=== PATIENT | female | born 1935 | race Caucasian/White ===

== ENCOUNTER 2017-11-05 18:11 | Inpatient (IN) | payer OTHER ==
--- NOTE | 2017-11-05 18:40 | PDOC ---
Rapid Medical Evaluation Time Seen by Provider: 11/05/17 18:33 Medical Evaluation: Allergies Allergy/AdvReac Type Severity Reaction Status Date / Time No Known Allergies Allergy Verified 04/13/16 12:34 11/05/17 18:34 The patient presents with a chief complaint of: Falls d/t weakness today. (+) LOC. Denies head trauma. No blood thinners. C/o R Rib pain I have performed a brief in-person evaluation of this patient; Pertinent physical exam findings: ambulatory, in no respiratory distress. HR regular in the 120's.TTP R ribs I have ordered the following: CBC, CMP, PT/INR, Trop, UA,UC, EKG, CXR The patient will proceed to the ED for further evaluation. Discharge Disposition - Referrals Referrals: Cathy Suarez MD [Primary Care Provider] - - Patient Instructions - Post Discharge Activity
[2017-11-05 19:24] LABS: BASO % 0.4 % (0-2.0); EOS % 0.5 % (0-4.5); HEMATOCRIT 44.9 % (32.4-45.2); HEMOGLOBIN 14.7 GM/dL (10.7-15.3); LYMPH % 11.5 % (8-40); MCH 30.7 pg (25.7-33.7); MCHC 32.8 g/dl (32.0-36.0); MEAN CELL VOLUME 93.6 fl (80-96); MEAN PLT VOLUME 8.1 fl (7.5-11.1); MONO % 5.9 % (3.8-10.2); NEUT % 81.7 % (42.8-82.8); PLATELET COUNT 237 K/MM3 (134-434); RDW 13.7 % (11.6-15.6); WHITE BLOOD COUNT 12.6 K/mm3 (4.0-10.0)
[2017-11-05 19:43] LABS: INR 0.99 (0.82-1.09); PROTHROMBIN TIME (PATIENT) 11.2 SEC (9.7-13.0)
[2017-11-05 19:54] LABS: ALK PHOS 106 U/L (45-117); ANION GAP 11 (8-16); BILIRUBIN,TOTAL 0.3 mg/dL (0.2-1.0); BLOOD UREA NITROGEN 29 mg/dL (7-18); CALCIUM 9.4 mg/dL (8.5-10.1); CHLORIDE 105 mmol/L (98-107); CO2 23 mmol/L (21-32); CREATININE 1.1 mg/dL (0.55-1.02); GLUCOSE,RANDOM 127 mg/dL (74-106); POTASSIUM 4.1 mmol/L (3.5-5.1); SGOT/AST 29 U/L (15-37); SGPT/ALT 34 U/L (12-78); SODIUM 139 mmol/L (136-145); TOT PROT 7.2 g/dl (6.4-8.2)
--- NOTE | 2017-11-05 20:53 | PDOC ---
Attending Attestation - HPI HPI: 11/05/17 22:40 The patient is an 82 year old female, accompanied by son, with a past medical history of dementia and HTN who presents to the emergency department today status post unwitnessed fall and loss of consciousness. The patient lives at home and has a home health aid. At 4pm the patient fell out of her chair onto a carpeted floor and loss consciousness. The home health aid was able to help the patient regain consciousness but the patient was subsequently unable to get up due to weakness. GENERAL/CONSTITUTIONAL: (+) Weakness. No fever or chills. HEAD, EYES, EARS, NOSE AND THROAT: No change in vision. No ear pain or discharge. No sore throat. GASTROINTESTINAL: No nausea, vomiting, diarrhea or constipation. GENITOURINARY: No dysuria, frequency, or change in urination. CARDIOVASCULAR: No chest pain or shortness of breath. RESPIRATORY: No cough, wheezing, or hemoptysis. MUSCULOSKELETAL: No joint or muscle swelling or pain. No neck or back pain. SKIN: No rash NEUROLOGIC: (+) Loss of consciousness No headache, vertigo, or change in strength/sensation. ENDOCRINE: No increased thirst. No abnormal weight change. HEMATOLOGIC/LYMPHATIC: No anemia, easy bleeding, or history of blood clots. ALLERGIC/IMMUNOLOGIC: No hives or skin allergy. - Physicial Exam PE: 11/05/17 22:59 GENERAL: Awake, alert HEAD: No signs of trauma EYES: PERRLA, EOMI, sclera anicteric, conjunctiva clear ENT: Auricles normal inspection, hearing grossly normal, nares patent, oropharynx clear without exudates. Moist mucosa NECK: Normal ROM, supple, no lymphadenopathy, JVD, or masses LUNGS: Breath sounds equal, clear to auscultation bilaterally. No wheezes, and no crackles HEART: Regular rate and rhythm, normal S1 and S2, no murmurs, rubs or gallops ABDOMEN: Soft, nontender, normoactive bowel sounds. No guarding, no rebound. No masses EXTREMITIES: Normal range of motion, no edema. No clubbing or cyanosis. No cords, erythema, or tenderness NEUROLOGICAL: Cranial nerves II through XII grossly intact. Normal speech, no focal neuro deficits SKIN: Warm, Dry, normal turgor, no rashes or lesions noted. - Medical Decision Making 11/05/17 22:40 Documentation prepared by Howard Coyne, acting as medical record transcriber for Ne Christy DO. <Howard Coyne - Last Filed: 11/05/17 22:59> - Resident Resident Name: PacoNiko crandall - ED Attending Attestation I have performed the following: I have examined & evaluated the patient, The case was reviewed & discussed with the resident, I agree w/resident's findings & plan, Exceptions are as noted - Medical Decision Making 11/05/17 20:53 I, Dr. Ne Christy, DO, attest that this document has been prepared under my direction and personally reviewed by me in its entirety. I further attest, that it accurately reflects all work, treatment, procedures and medical decision -making performed by me. 11/05/17 22:29 a/p: 82yo female found on the [place] today with LOC -concern for poss hip fracture from fall, will obtain xrays -r rib pain earlier - will eval for rib fx -concern for syncope - labs, trop -head injury - will obtain ct head -will monitor for syncope 11/05/17 22:33 pt with a syncopal episode pt iwth a uti - will place in obs overnight abx ordered 11/05/17 22:[address] alexandre who accepts pt to service 11/06/17 00:12 pt agreeable to stay for futher eval <Ne Christy - Last Filed: 11/06/17 00:12>
[2017-11-05 21:19] LABS: URINE APPEARANCE SLCLOUDY; URINE BILIRUBIN NEGATIVE (<2.0 mg/dL); URINE COLOR YELLOW; URINE GLUCOSE (UA) NEGATIVE (NEGATIVE); URINE KETONE NEGATIVE (NEGATIVE); URINE LEUK ESTERASE 2+ (NEGATIVE); URINE NITRITE POSITIVE (NEGATIVE); URINE PROTEIN NEGATIVE (NEGATIVE); URINE UROBILINOGEN NEGATIVE mg/dL (0.2-1.0)
--- NOTE | 2017-11-05 21:21 | PDOC ---
History of Present Illness - General Chief Complaint: Injury Stated Complaint: FALL Time Seen by Provider: 11/05/17 18:33 History Source: Patient, Family Exam Limitations: Dementia - History of Present Illness Initial Comments: 11/05/17 21:11 Patient is an 82F with history of dementia and HTN here today complaining of a fall. Fall was unwitnessed, and patient does not know what happened. Patient was found a few feet from her bed. Patient is now complaining of pain to her right flank and left hip. Currently denies chest pain, shortness of breath, vertigo. Denies fevers, chills, urinary incontinence, dysuria, constipation. Patient takes aspirin, no other blood thinners. Per family is at baseline mental status. Past History - Past Medical History Allergies/Adverse Reactions: Allergies Allergy/AdvReac Type Severity Reaction Status Date / Time No Known Allergies Allergy Verified 11/05/17 18:35 Home Medications: Ambulatory Orders Bupropion HCl [Bupropion HCl Sr] 150 mg PO DAILY 04/13/16 Dicyclomine HCl 10 mg PO BID 04/13/16 Donepezil HCl 5 mg PO DAILY 04/13/16 Lipase/Protease/Amylase [Sun Almazan 36,000 Units Capsule] 1 each PO TID 04/13/16 Lubiprostone [Amitiza] 24 mcg PO BID 04/13/16 Omeprazole 40 mg PO DAILY 04/13/16 Polyethylene Glycol 3350 [Miralax (For Daily Use) -] 17 gm PO BID 04/13/16 levoFLOXacin [Levaquin -] 500 mg PO DAILY #7 tablet 04/15/16 metroNIDAZOLE [Flagyl -] 500 mg PO Q8H #12 tablet 04/15/16 Anemia: No Asthma: No Cancer: No Cardiac Disorders: No CVA: No (PT. "FAINTED IN OCTOBER- ALL WORKUP NEGATIVE") COPD: No CHF: No Dementia: No Diabetes: No GI Disorders: Yes (DIVERTICULITIS, NAUSEA, CHRONIC CONSTIPATION) Disorders: No HTN: No Hypercholesterolemia: No Liver Disease: No Seizures: No Thyroid Disease: No - Surgical History Abdominal Surgery: No Appendectomy: No Cardiac Surgery: No Cholecystectomy: No Lung Surgery: No Neurologic Surgery: No Orthopedic Surgery: Yes - Immunization History Immunization Up to Date: Yes - Suicide/Smoking/Psychosocial Hx Smoking Status: No Smoking History: Never smoked Have you smoked in the past 12 months: No Number of Cigarettes Smoked Daily: 0 Information on smoking cessation initiated: No Hx Alcohol Use: No Drug/Substance Use Hx: No Substance Use Type: None Hx Substance Use Treatment: No Review of Systems - Review of Systems Able to Perform ROS?: Yes Comments:: 11/05/17 21:21 GENERAL/CONSTITUTIONAL: No fever or chills. No weakness. HEAD, EYES, EARS, NOSE AND THROAT: No change in vision. No sore throat. CARDIOVASCULAR: No chest pain or shortness of breath RESPIRATORY: No cough, wheezing, or hemoptysis. GASTROINTESTINAL: No nausea, vomiting, diarrhea or constipation. GENITOURINARY: No dysuria, frequency, or change in urination. MUSCULOSKELETAL: Positive for right rib pain and left hip pain. SKIN: No rash NEUROLOGIC: No headache, vertigo, loss of consciousness, or change in strength/ sensation. ENDOCRINE: No increased thirst. No abnormal weight change HEMATOLOGIC/LYMPHATIC: No anemia, easy bleeding, or history of blood clots. ALLERGIC/IMMUNOLOGIC: No hives or skin allergy. *Physical Exam - Vital Signs Last Vital Signs Temp Pulse Resp BP Pulse Ox 97.5 F L 67 14 144/52 96 11/05/17 18:35 11/05/17 18:35 11/05/17 18:35 11/05/17 18:35 11/05/17 18:35 - Physical Exam Comments: 11/05/17 21:24 GENERAL: Awake, alert, oriented to self/place, not time, in no acute distress HEAD: No signs of trauma, normocephalic, atraumatic EYES: PERRLA, EOMI, sclera anicteric, conjunctiva clear ENT: Auricles normal inspection, hearing grossly normal, nares patent, oropharynx clear without exudates. Moist mucosa NECK: Normal ROM, supple, no lymphadenopathy, JVD, or masses. No midline tenderness LUNGS: No distress, speaks full sentences, clear to auscultation bilaterally HEART: Regular rate and rhythm, normal S1 and S2, no murmurs, rubs or gallops, peripheral pulses normal and equal bilaterally. ABDOMEN: Soft, nontender, normoactive bowel sounds. No guarding, no rebound. No masses EXTREMITIES: No signs of trauma, tender along left hip. NEUROLOGICAL: Cranial nerves II through XII grossly intact. Normal speech, no focal sensorimotor deficits, but left hip movement limited by pain SKIN: Warm, Dry, normal turgor, no rashes or lesions noted. ED Treatment Course - LABORATORY CBC & Chemistry Diagram: 11/05/17 19:15 11/05/17 19:15 - ADDITIONAL ORDERS Additional order review: Laboratory Results 11/05/17 11/05/17 11/05/17 19:15 19:15 19:15 PT with INR 11.20 INR 0.99 Sodium 139 Potassium 4.1 Chloride 105 Carbon Dioxide 23 Anion Gap 11 BUN 29 H Creatinine 1.1 H Creat Clearance w eGFR 47.55 Random Glucose 127 H Calcium 9.4 Total Bilirubin 0.3 D AST 29 ALT 34 Alkaline Phosphatase 106 Creatine Kinase 51 Troponin I < 0.02 Total Protein 7.2 Albumin 4.0 11/05/17 19:15 RBC 4.80 MCV 93.6 MCHC 32.8 RDW 13.7 MPV 8.1 Neutrophils % 81.7 D Lymphocytes % 11.5 D Monocytes % 5.9 Eosinophils % 0.5 Basophils % 0.4 - RADIOLOGY Radiology Studies Ordered: Category Date Time Status CERVICAL SPINE CT W/O CONTR [CT] Stat CT Scan 11/05/17 20:54 Ordered HIP & PELVIS-LEFT [RAD] Stat Radiology 11/05/17 20:22 Ordered RIBS RIGHT SIDE [RAD] Stat Radiology 11/05/17 20:22 Ordered Medical Decision Making - Medical Decision Making 11/05/17 21:25 Patient is 82F with history of dementia and HTN here today after a fall. Will do head/neck ct due to aspirin use and dementia. Will do cxr, right ribs xray, and left hip x-ray to evaluate for further trauma. Nontender chest, nontender abdomen. Will evaluate further with cbc, cmp, trop, ekg, pt/inr, ua, uc. 11/05/17 21:52 Laboratory Tests 11/05/17 11/05/17 11/05/17 19:15 19:15 19:15 WBC 12.6 H D Hgb 14.7 D Plt Count 237 D BUN 29 H Creatinine 1.1 H Troponin I < 0.02 Urine Nitrite Ur Leukocyte Esterase Urine WBC (Auto) Urine Bacteria 11/05/17 21:00 WBC Hgb Plt Count BUN Creatinine Troponin I Urine Nitrite Positive Ur Leukocyte Esterase 2+ H Urine WBC (Auto) 8 Urine Bacteria Few UA positive. CBC shows leukocytosis. Troponin undetectable. CMP reassuring. Will 1g ceftriaxone. 11/05/17 22:11 CT neck/head negative. 11/05/17 23:41 Admitted to obs for further observation. *DC/Admit/Observation/Transfer Diagnosis at time of Disposition: Syncope and collapse, UTI (urinary tract infection) - Discharge Dispostion Condition at time of disposition: Stable Decision to Admit order: Yes - Referrals - Patient Instructions - Post Discharge Activity
[2017-11-05 21:25] LABS: URINE BACTERIA FEW /hpf (NONE SEEN); URINE MUCUS RARE
[2017-11-05] MEDS ORDERED: CEFTRIAXONE 1 GM in DEXTROSE 5%-WATER - 100 ML IVPB ONE (22:57)
--- NOTE | 2017-11-05 23:32 | HP ---
CHIEF COMPLAINT: syncopal episode PCP: Cathy Shane HISTORY OF PRESENT ILLNESS: 82 year old female with a past medical history of hypertension and dementia presented to the hospital s/p fall and loss of consciousness. She states that she does not remember what happened before or after the fall, but only that afterwards she was found several feet from her bed. She denies associated chest pain, shortness of breath, nausea, vomiting, diarrhea, fevers, chills, dysuria or polyuria. She has had syncopal episodes in the past for which she was worked up at [facility] in 2016 (Previous echo, (66% EF, elevated RVSP 30-40, aortic sclerosis)). She denies any current pain associated from the fall, but she does state she has a mild suprapubic dyscomfort. She reports normal bowel movements. 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 She denies smoking or alcohol use. ER course was notable for: (1) UA + for nitrite and leuk esterase (2) WBC 12.6 (3) Cre 1.1 Recent Travel: PAST MEDICAL HISTORY: as listed above PAST SURGICAL HISTORY: minor procedures but no major surgeries according to patient Social History: Smoking: never Alcohol: never Drugs: never Allergies No Known Allergies Allergy (Verified 11/05/17 18:35) HOME MEDICATIONS: Home Medications Medication Instructions Recorded Bupropion HCl [Bupropion HCl Sr] 150 mg PO DAILY 04/13/16 Dicyclomine HCl 10 mg PO BID 04/13/16 Donepezil HCl 5 mg PO DAILY 04/13/16 Lipase/Protease/Amylase [Creon Dr 1 each PO TID 04/13/16 36,000 Units Capsule] Lubiprostone [Amitiza] 24 mcg PO BID 04/13/16 Omeprazole 40 mg PO DAILY 04/13/16 Polyethylene Glycol 3350 [Miralax 17 gm PO BID 04/13/16 (For Daily Use) -] levoFLOXacin [Levaquin -] 500 mg PO DAILY #7 tablet 04/15/16 metroNIDAZOLE [Flagyl -] 500 mg PO Q8H #12 tablet 04/15/16 REVIEW OF SYSTEMS CONSTITUTIONAL: Absent: fever, chills, diaphoresis, generalized weakness, malaise, loss of appetite, weight change HEENT: Absent: rhinorrhea, nasal congestion, throat pain, throat swelling, difficulty swallowing, mouth swelling, ear pain, eye pain, visual changes CARDIOVASCULAR: Absent: chest pain, syncope, palpitations, irregular heart rate, lightheadedness , peripheral edema RESPIRATORY: Absent: cough, shortness of breath, dyspnea with exertion, orthopnea, wheezing, stridor, hemoptysis GASTROINTESTINAL: mild abdominal pain, Absent:abdominal distension, nausea, vomiting, diarrhea, constipation, melena, hematochezia GENITOURINARY: Absent: dysuria, frequency, urgency, hesitancy, hematuria, flank pain, genital pain MUSCULOSKELETAL: Absent: myalgia, arthralgia, joint swelling, back pain, neck pain SKIN: Absent: rash, itching, pallor HEMATOLOGIC/IMMUNOLOGIC: Absent: easy bleeding, easy bruising, lymphadenopathy, frequent infections ENDOCRINE: Absent: unexplained weight gain, unexplained weight loss, heat intolerance, cold intolerance NEUROLOGIC: Absent: headache, focal weakness or paresthesias, dizziness, unsteady gait, seizure, mental status changes, bladder or bowel incontinence PSYCHIATRIC: Absent: anxiety, depression, suicidal or homicidal ideation, hallucinations. PHYSICAL EXAMINATION Vital Signs - 24 hr 11/05/17 18:35 Temperature 97.5 F L Pulse Rate 67 Respiratory 14 Rate Blood Pressure 144/52 O2 Sat by Pulse 96 Oximetry (%) GENERAL: A&Ox3, no acute distress EYES: PERRLA, EOMI ENT: Moist mucus membranes NECK: No JVD LUNGS: CTA, no wheezes HEART: RRR, no murmurs ABDOMEN: Soft, nontender, BS present MUSCULOSKELETAL: No CVA Tenderness EXTREMITIES: 2+ pulses, no edema. NEUROLOGICAL: Cranial nerves II-XII intact. Laboratory Results - last 24 hr 11/05/17 11/05/17 11/05/17 19:15 19:15 19:15 WBC 12.6 H D RBC 4.80 Hgb 14.7 D Hct 44.9 D MCV 93.6 MCH 30.7 MCHC 32.8 RDW 13.7 Plt Count 237 D MPV 8.1 Neutrophils % 81.7 D Lymphocytes % 11.5 D Monocytes % 5.9 Eosinophils % 0.5 Basophils % 0.4 PT with INR 11.20 INR 0.99 Sodium 139 Potassium 4.1 Chloride 105 Carbon Dioxide 23 Anion Gap 11 BUN 29 H Creatinine 1.1 H Creat Clearance w eGFR 47.55 Random Glucose 127 H Calcium 9.4 Total Bilirubin 0.3 D AST 29 ALT 34 Alkaline Phosphatase 106 Creatine Kinase Troponin I Total Protein 7.2 Albumin 4.0 Urine Color Urine Appearance Urine pH Ur Specific [place] Urine Protein Urine Glucose (UA) Urine Ketones Urine Blood Urine Nitrite Urine Bilirubin Urine Urobilinogen Ur Leukocyte Esterase Urine WBC (Auto) Urine RBC (Auto) Urine Bacteria Urine Mucus 11/05/17 11/05/17 19:15 21:00 WBC RBC Hgb Hct MCV MCH MCHC RDW Plt Count MPV Neutrophils % Lymphocytes % Monocytes % Eosinophils % Basophils % PT with INR INR Sodium Potassium Chloride Carbon Dioxide Anion Gap BUN Creatinine Creat Clearance w eGFR Random Glucose Calcium Total Bilirubin AST ALT Alkaline Phosphatase Creatine Kinase 51 Troponin I < 0.02 Total Protein Albumin Urine Color Yellow Urine Appearance Slcloudy Urine pH 5.0 D Ur Specific [place] 1.026 Urine Protein Negative Urine Glucose (UA) Negative Urine Ketones Negative Urine Blood 1+ H Urine Nitrite Positive Urine Bilirubin Negative Urine Urobilinogen Negative Ur Leukocyte Esterase 2+ H Urine WBC (Auto) 8 Urine RBC (Auto) 5 Urine Bacteria Few Urine Mucus Rare ASSESSMENT/PLAN: 82 year old female with a past medical history of hypertension and dementia presented to the hospital s/p and is admitted for observation to evaluate syncopal episode #Syncopal Episode: patient is currently asymptomatic -EKG sinus sita at 58bpm, LAD - repeat EKG -orthostatic vitals -prior echo was in 2016 and showed 66% EF, elevated RVSP 30-40, aortic sclerosis -repeat echo -trops negative x2 -cardiac monitoring #Asymptomatic Bacteruria: patient was given 1gm ceftriaxone in ED -continuing abx not clinically indicated #Hypertension: patient's blood pressure is currently stable -not on any antihypertensives at home #Dementia -continue donezepil #FEN -no standing fluids -electrolytes within normal limits, repeat BMP in AM -low-sodium diet in AM due to hx of htn #Prophylaxis -heparin #Disposition -admit tele obs Visit type - Emergency Visit Emergency Visit: Yes ED Registration Date: 11/05/17 Care time: The patient presented to the Emergency Department on the above date and was hospitalized for further evaluation of their emergent condition. - New Patient This patient is new to me today: Yes Date on this admission: 11/06/17 - Critical Care Critical Care patient: No Hospitalist Screening - Colonoscopy Questionnaire Colonoscopy Questionnaire: Colonoscopy Questionnaire - Patient: 50 - 75 years old and never had a screening colonoscopy: Unknown History of colon or rectal polyps, or CA: Unknown History of IBD, Crohn's disease or UC: Unknown History of abdominal radiation therapy as a child: Unknown - Relative: 1 with colon or rectal CA, or polyps at age 60 or younger: Unknown Colon or rectal CA diagnosed at age 45 or younger: Unknown Multiple relatives with colon or rectal CA: Unknown - Outcome: Screening Result: Negative Screen
[2017-11-06] MEDS ORDERED: cefTRIAXone SODIUM 1 GM VIAL ONE ×2 (00:52→09:46)
--- NOTE | 2017-11-06 02:53 | PN ---
Teaching Attending Note Name of Resident: Andrade Payne ATTENDING PHYSICIAN STATEMENT I saw and evaluated the patient. Chart, data, imaging reviewed I reviewed the resident's note and discussed the case with the resident. I agree with the resident's findings and plan as documented. SUBJECTIVE: 82 year old woman with a PMHx of htn, dementia, presented to hospital s/p fall at her house and questionable LOC. She was found to be lying next to her bed at home. Pt cannot recall exactly what had happened. No signs of trauma. C/o some abdominal discomfort. Denied any chest pain, or shortness of breath. OBJECTIVE: Last Vital Signs Temp Pulse Resp BP Pulse Ox 97.5 F L 57 L 20 147/80 98 11/05/17 18:35 11/06/17 01:01 11/06/17 01:01 11/06/17 01:01 11/06/17 01:01 general- nad, nontoxic appearing heent-atraumatic, normocephalic neck -no jvd or neck mases cv-s1+s2+ rrr, no murmurs appreciated chest- cta b/l abdomen -soft, nt, BS+ ext- no pedal edema appreciated Abnormal Lab Results 11/05/17 11/05/17 11/05/17 19:15 19:15 21:00 WBC 12.6 H D BUN 29 H Creatinine 1.1 H Random Glucose 127 H Urine Blood 1+ H Ur Leukocyte Esterase 2+ H Imaging reviewed- head neg for acute intracranial pathology, spine ct neg for fractures, cxr no rib fractures seen, pending official read ekg -reviewed, mild sinus bradycardia -hr was 58 bpm ASSESSMENT AND PLAN: #82yo demented woman with mechanical fall vs syncope. No overt signs of trauma on exam. -tele-observation -trend troponin -repeat ekg -transthoracic echo to check for aortic stenosis -check orthostatics -fall precautions -avoid diuretics -PT gait evaluation -continue home medications #DVT ppx - heparin sc
[2017-11-06 03:59] VITALS: BMI 22.9
[2017-11-06 06:35] LABS: HEMATOCRIT 39.6 % (32.4-45.2); HEMOGLOBIN 13.8 GM/dL (10.7-15.3); MCH 32.3 pg (25.7-33.7); MCHC 34.8 g/dl (32.0-36.0); MEAN CELL VOLUME 92.8 fl (80-96); MEAN PLT VOLUME 8.6 fl (7.5-11.1); PLATELET COUNT 173 K/MM3 (134-434); RBC 4.26 M/mm3 (3.60-5.2); RDW 13.6 % (11.6-15.6); WHITE BLOOD COUNT 7.6 K/mm3 (4.0-10.0)
[2017-11-06 07:13] LABS: ANION GAP 7 (8-16); BLOOD UREA NITROGEN 22 mg/dL (7-18); CHLORIDE 107 mmol/L (98-107); CO2 25 mmol/L (21-32); GLUCOSE,RANDOM 85 mg/dL (74-106); MAGNESIUM 2.2 mg/dL (1.8-2.4); POTASSIUM 3.6 mmol/L (3.5-5.1); SODIUM 139 mmol/L (136-145)
[2017-11-06 07:14] LABS: CALCIUM 8.9 mg/dL (8.5-10.1); PHOSPHOROUS 3.6 mg/dL (2.5-4.9)
[2017-11-06] MEDS ORDERED: PT OWN MED DRAWER 7, Y5N ONE (09:46)
[2017-11-06] MEDS ORDERED: DEXTROSE 5%-WATER - 50 ML IVPB ONE (09:46)
[2017-11-06] MEDS ORDERED: DICYCLOMINE HCL 10 MG CAPSULE PO SCH (10:00)
[2017-11-06] MEDS ORDERED: PATIENT'S OWN MEDICATION (NON-FORMULARY) (Lubiprostone [Amitiza] 24 MCG) PO SCH ×2 (10:00)
[2017-11-06] MEDS: CEFTRIAXONE 1 GM in DEXTROSE 5%-WATER - 50 ML IVPB SCH (10:02)
[2017-11-06] MEDS: PANTOPRAZOLE 40 MG TABLET (FP) PO SCH (10:02)
--- NOTE | 2017-11-06 10:32 | EKG ---
Test Reason : Blood Pressure : / mmHG Vent. Rate : 056 BPM Atrial Rate : 056 BPM P-R Int : 198 ms QRS Dur : 090 ms QT Int : 428 ms P-R-T Axes : 053 -35 051 degrees QTc Int : 413 ms SINUS BRADYCARDIA LEFT AXIS DEVIATION ABNORMAL ECG WHEN COMPARED WITH ECG OF 06-NOV-2017 02:59, VENT. RATE HAS DECREASED BY 55 BPM Confirmed by HILDA SIMMONS MD ([id number]) on 11/06/2017 10:32:16 AM Referred By: Confirmed By:HILDA SIMMONS MD
--- NOTE | 2017-11-06 10:33 | EKG ---
Test Reason : Blood Pressure : / mmHG Vent. Rate : 111 BPM Atrial Rate : 111 BPM P-R Int : 000 ms QRS Dur : 090 ms QT Int : 364 ms P-R-T Axes : 000 -32 071 degrees QTc Int : 495 ms POOR DATA QUALITY, INTERPRETATION MAY BE ADVERSELY AFFECTED SINUS TACHYCARDIA NONSPECIFIC T WAVE ABNORMALITY LEFT AXIS DEVIATION ABNORMAL ECG WHEN COMPARED WITH ECG OF 05-NOV-2017 22:40, VENT. RATE HAS INCREASED BY 53 BPM Confirmed by HILDA SIMMONS MD ([id number]) on 11/06/2017 10:32:43 AM Referred By: Confirmed By:HILDA SIMMONS MD
--- NOTE | 2017-11-06 11:07 | EKG ---
Test Reason : Blood Pressure : / mmHG Vent. Rate : 058 BPM Atrial Rate : 058 BPM P-R Int : 186 ms QRS Dur : 088 ms QT Int : 444 ms P-R-T Axes : 046 -32 057 degrees QTc Int : 435 ms SINUS BRADYCARDIA LEFT AXIS DEVIATION NONSPECIFIC T WAVE ABNORMALITY ABNORMAL ECG WHEN COMPARED WITH ECG OF 14-APR-2016 02:49, NO SIGNIFICANT CHANGE WAS FOUND Confirmed by HILDA SIMMONS MD ([id number]) on 11/06/2017 11:07:07 AM Referred By: Confirmed By:HILDA SIMMONS MD
[2017-11-06] MEDS ORDERED: SODIUM CHLORIDE 1,000 ML IV SCH (11:45)
--- NOTE | 2017-11-06 15:33 | PN ---
Physical Exam: SUBJECTIVE: Patient seen and examined at bedside. This morning, pt unable to further explain how she fell. Stated that she lives at home with her and family, and woke up to find herself "on the floor." States that she may have slipped off a chair. +LOC, without head trauma. Denies CUI, fever, chills, SOB, chest pain or pressure, or changes in urinary or bowel function. OBJECTIVE: Vital Signs Period Temp Pulse Resp BP Sys/Miller Pulse Ox Last 24 Hr 97.5 F-98.3 F 57-67 14-20 138-148/52-97 96-98 GENERAL: The patient is pleasant, with dementia. awake, alert, and fully oriented, in no acute distress. HEAD: Normal with no signs of trauma. EYES: PERRL, extraocular movements intact, sclera anicteric, conjunctiva clear. No ptosis. ENT: Ears normal, nares patent, oropharynx clear without exudates, dry mucous membranes NECK: Trachea midline, full range of motion, supple. LUNGS: Breath sounds equal, clear to auscultation bilaterally, no wheezes, no crackles, no accessory muscle use. HEART: Regular rate and rhythm, S1, S2 without murmur, rub or gallop. ABDOMEN: Soft, TTP in suprapubic area, nondistended, normoactive bowel sounds, no guarding, no rebound EXTREMITIES: 2+ dp pulses, warm, well-perfused, no edema. NEUROLOGICAL: Cranial nerves II through XII grossly intact. Normal speech. AAO x2 (self, place) PSYCH: Normal mood, normal affect. SKIN: Warm, dry Laboratory Results - last 24 hr 11/05/17 11/05/17 11/05/17 19:15 19:15 19:15 WBC 12.6 H D RBC 4.80 Hgb 14.7 D Hct 44.9 D MCV 93.6 MCH 30.7 MCHC 32.8 RDW 13.7 Plt Count 237 D MPV 8.1 Neutrophils % 81.7 D Lymphocytes % 11.5 D Monocytes % 5.9 Eosinophils % 0.5 Basophils % 0.4 PT with INR 11.20 INR 0.99 Sodium 139 Potassium 4.1 Chloride 105 Carbon Dioxide 23 Anion Gap 11 BUN 29 H Creatinine 1.1 H Creat Clearance w eGFR 47.55 Random Glucose 127 H Calcium 9.4 Phosphorus Magnesium Total Bilirubin 0.3 D AST 29 ALT 34 Alkaline Phosphatase 106 Creatine Kinase Troponin I Total Protein 7.2 Albumin 4.0 Urine Color 11/05/17 11/05/17 11/06/17 19:15 21:00 00:40 Hgb Alkaline Phosphatase Creatine Kinase 51 54 Troponin I < 0.02 < 0.02 Total Protein Albumin Urine Color Yellow Urine Appearance Slcloudy Urine pH 5.0 D Ur Specific Irving 1.026 Urine Protein Negative Urine Glucose (UA) Negative Urine Ketones Negative Urine Blood 1+ H Urine Nitrite Positive Urine Bilirubin Negative Urine Urobilinogen Negative Ur Leukocyte Esterase 2+ H Urine WBC (Auto) 8 Urine RBC (Auto) 5 Urine Bacteria Few Urine Mucus Rare Active Medications Generic Name Dose Route Start Last Admin Trade Name Freq PRN Reason Stop Dose Admin Bupropion HCl 150 mg 11/06/17 10:00 11/06/17 10:02 Wellbutrin Xl - PO 150 mg DAILY DARLIN Administration Donepezil HCl 5 mg 11/06/17 22:00 Aricept - PO HS DARLIN Ceftriaxone Sodium 1 gm/ 50 mls @ 100 mls/hr 11/06/17 10:00 11/06/17 10:02 Dextrose IVPB 100 mls/hr DAILY DARLIN Administration Protocol Sodium Chloride 1,000 mls @ 75 mls/hr 11/06/17 11:45 11/06/17 11:57 Normal Saline - IV 11/07/17 01:04 75 mls/hr ASDIR DARLIN Administration Metoprolol Succinate 25 mg 11/07/17 10:00 Toprol Xl - PO DAILY DARLIN Pantoprazole Sodium 40 mg 11/06/17 10:00 11/06/17 10:02 Protonix - PO 40 mg DAILY DARLIN Administration IMAGING 11/05/17: CXR: no acute disease, no infiltrates, calcified thoracic aorta 11/05/17: Head CT: no acute hemorrhage, acute chronic sinusitis 11/05/17: Hip/pelvis XR: osteopenia, no dislocation, or fx 11/05/17 Ribs XR: no rib fx 11/05/17: Cervical spine CT: degenerative arthritis, no fx 11/06/17: Carotid doppler study: intimal thickening and minimal plaque buildup at the common carotid bifurcation and bulb, bilaterally withut evidence of hemodynamically significant stenosis, bilaterally. 11/06/17: ECHO: EF 59.4, mild MR, TR, moderate aortic sclerosis, trivial pericardial effusion not hemodynamically significant EKG: NSR, sinus bradycardia, HR 50's > repeat, sinus tach 110's. without st-t wave changes ASSESSMENT/PLAN: 82 y/o F with PMH HTN, dementia, who presented s/p fall with LOC. #s/p fall likely 2/2 UTI -less likely cardiac; pt without gross abnormality on EKG or arrythmia, trops - x2 -ECHO EF 59.4 however without significant valvular abnormality - with moderate aortic sclerosis however -Carotid study- without hemodynamically significant stenosis -with suprapubic tenderness, UA +nitrites, leuk esterase, 8WBC. in elderly with dementia, can cause gait abnormality -continue on rocephin 1g IVPB qd - Today is Day2 -F/u urine cx -IVF as pt clinically dry -Ballard (Day 1)- pt with urinary retention ~700ccs. Will try and wean tomorrow -orthostatics (+) -monitoring on tele -PT evaluation -f/u ECHO as outpatient to check on small pericardial effusion status #HTN- uncontrolled likely 2/2 discomfort -medications have been reconciled with pharmacy -started on home med metoprolol succinate 25mg PO qd #Dementia -Continue aricept 5mg PO qd #F/E/N IV NS 75 cc/hr -1 bag. Avoid overhydration as pt with small pericardial effusion monitor lytes sodium controlled diet #PPX DVT: Hep 5000 SQ TID #Dispo -continued tele monitoring Visit type - Emergency Visit Emergency Visit: No - New Patient This patient is new to me today: Yes Date on this admission: 11/06/17 - Critical Care Critical Care patient: No
--- NOTE | 2017-11-06 15:59 | PN ---
Teaching Attending Note Name of Resident: Dunia Tapia ATTENDING PHYSICIAN STATEMENT I saw and evaluated the patient. I reviewed the resident's note and discussed the case with the resident. I agree with the resident's findings and plan as documented. SUBJECTIVE: No pain, no SOB. poor historian. OBJECTIVE: NAD , dry MM , no JVD Cv: RRR Lungs: CTAB Ext: no edema Abd: soft, TTP in suprapubic area, ND , NL BS . ASSESSMENT AND PLAN: 82 y/o lady with h/o HTN and dementia who presented after an unwitnessed fall. she was found to have UTI. 1- Unwitnessed fall: Most likely mechanical but can't r/o syncope. UTI might be causing gait abnormalities . PT eval tele with episodes of sinus tachycardia EKG with no acute ischemic changes , LAD. trop NL x 2. echo with LVH , no significant valvular pathology. minimal pericardial effusion - treat UTI -check orthostatic VS - give gentle hydration 2- UTI: with urinary retention yesterday, and tenderness in suprapubic area. - ocnt ceftriaxone and follow urine cx 3- start heparin sq for DVT prophylaxis
[2017-11-06] MEDS: DONEPEZIL HCL 5 MG TABLET (FP) PO SCH (21:08)
[2017-11-06] MEDS: HEPARIN NA (PORCINE) 5,000 UNITS/ML 1ML VIAL SQ SCH (21:08)
[2017-11-07] MEDS: HEPARIN NA (PORCINE) 5,000 UNITS/ML 1ML VIAL SQ SCH ×3 (05:04→22:33)
[2017-11-07 07:42] LABS: BASO % 0.5 % (0-2.0); EOS % 2.3 % (0-4.5); HEMATOCRIT 40.1 % (32.4-45.2); HEMOGLOBIN 14.1 GM/dL (10.7-15.3); LYMPH % 26.7 % (8-40); MCH 32.7 pg (25.7-33.7); MCHC 35.1 g/dl (32.0-36.0); MEAN CELL VOLUME 93.3 fl (80-96); MEAN PLT VOLUME 8.7 fl (7.5-11.1); MONO % 9.2 % (3.8-10.2); NEUT % 61.3 % (42.8-82.8); PLATELET COUNT 153 K/MM3 (134-434); RDW 13.1 % (11.6-15.6); WHITE BLOOD COUNT 5.2 K/mm3 (4.0-10.0)
[2017-11-07 08:20] LABS: ANION GAP 8 (8-16); BLOOD UREA NITROGEN 16 mg/dL (7-18); CALCIUM 8.3 mg/dL (8.5-10.1); CHLORIDE 111 mmol/L (98-107); CO2 23 mmol/L (21-32); GLUCOSE,RANDOM 90 mg/dL (74-106); POTASSIUM 3.8 mmol/L (3.5-5.1); SODIUM 142 mmol/L (136-145)
[2017-11-07 08:21] LABS: CREATININE 0.9 mg/dL (0.55-1.02)
[2017-11-07] MEDS ORDERED: PT OWN MED DRAWER 7, Y5N ONE (09:22)
[2017-11-07] MEDS ORDERED: DEXTROSE 5%-WATER - 50 ML IVPB ONE (09:22)
[2017-11-07] MEDS ORDERED: cefTRIAXone SODIUM 1 GM VIAL ONE (09:22)
[2017-11-07] MEDS: CEFTRIAXONE 1 GM in DEXTROSE 5%-WATER - 50 ML IVPB SCH (09:26)
[2017-11-07] MEDS: metoPROLOL SUCCINATE 25 MG TAB.SR.24H (FP) PO SCH (09:27)
[2017-11-07] MEDS: PANTOPRAZOLE 40 MG TABLET (FP) PO SCH (09:27)
--- NOTE | 2017-11-07 10:05 | PN ---
Physical Exam: SUBJECTIVE: Patient seen and examined at bedside. Overnight, as per nursing, pt with non-sustained episodic tachycardia. On monitor, with missed beats and HR into 120-140's. However, asymptomatic. Still with ballard. States that she "feels well," denies CUI, fever, chills, SOB, chest pain or pressure, or changes in urinary or bowel function. OBJECTIVE: Vital Signs Period Temp Pulse Resp BP Sys/Miller Pulse Ox Last 24 Hr 97.5 F-98.1 F 83-166 18-20 107-153/61-95 96-98 GENERAL: The patient is lying down comfortably. +mild dementia. AAOx2 (self, place), in no acute distress. HEAD: Normal with no signs of trauma. EYES: PERRL, extraocular movements intact, sclera anicteric, conjunctiva clear. ENT: Ears normal, nares patent, oropharynx clear without exudates, moist mucous membranes. NECK: Trachea midline, supple. LUNGS: Breath sounds equal, clear to auscultation bilaterally, no wheezes, no crackles, no accessory muscle use. HEART: Regular rate and rhythm, S1, S2 without murmur, rub or gallop. ABDOMEN: Soft, nontender, nondistended, normoactive bowel sounds, no guarding, no rebound, without suprapubic tenderness today. GENITOURINARY: +Ballard draining dark yellow urine EXTREMITIES: 2+ dp pulses, warm, well-perfused, no edema. NEUROLOGICAL: Cranial nerves II through XII grossly intact. Normal speech. Motor strength 4/5 in upper and lower extremities, sensation intact. PSYCH: Normal mood, normal affect. SKIN: Warm, dry, normal turgor Laboratory Results - last 24 hr 11/07/17 11/07/17 06:00 06:00 WBC 5.2 D RBC 4.30 Hgb 14.1 Hct 40.1 MCV 93.3 MCH 32.7 MCHC 35.1 RDW 13.1 Plt Count 153 MPV 8.7 Neutrophils % 61.3 D Lymphocytes % 26.7 D Monocytes % 9.2 Eosinophils % 2.3 D Basophils % 0.5 Sodium 142 Potassium 3.8 Chloride 111 H Carbon Dioxide 23 Anion Gap 8 BUN 16 Creatinine 0.9 Random Glucose 90 Calcium 8.3 L Active Medications Generic Name Dose Route Start Last Admin Trade Name Freq PRN Reason Stop Dose Admin Bupropion HCl 150 mg 11/06/17 10:00 11/07/17 09:27 Wellbutrin Xl - PO 150 mg DAILY DARLIN Administration Donepezil HCl 5 mg 11/06/17 22:00 11/06/17 21:08 Aricept - PO 5 mg HS DARLIN Administration Heparin Sodium (Porcine) 5,000 unit 11/06/17 22:00 11/07/17 05:04 Heparin - SQ 5,000 unit TID DARLIN Administration Ceftriaxone Sodium 1 gm/ 50 mls @ 100 mls/hr 11/06/17 10:00 11/07/17 09:26 Dextrose IVPB 100 mls/hr DAILY DARLIN Administration Protocol Metoprolol Succinate 25 mg 11/07/17 10:00 11/07/17 09:27 Toprol Xl - PO 25 mg DAILY DARLIN Administration Pantoprazole Sodium 40 mg 11/06/17 10:00 11/07/17 09:27 Protonix - PO 40 mg DAILY DARLIN Administration IMAGING 11/05/17: CXR: no acute disease, no infiltrates, calcified thoracic aorta 11/05/17: Head CT: no acute hemorrhage, acute chronic sinusitis 11/05/17: Hip/pelvis XR: osteopenia, no dislocation, or fx 11/05/17 Ribs XR: no rib fx 11/05/17: Cervical spine CT: degenerative arthritis, no fx 11/06/17: Carotid doppler study: intimal thickening and minimal plaque buildup at the common carotid bifurcation and bulb, bilaterally withut evidence of hemodynamically significant stenosis, bilaterally. 11/06/17: ECHO: EF 59.4, mild MR, TR, moderate aortic sclerosis, trivial pericardial effusion not hemodynamically significant EKG: NSR, sinus bradycardia, HR 50's > repeat, sinus tach 110's. without st-t wave changes ASSESSMENT/PLAN: 82 y/o F with PMH HTN, dementia, who presented s/p fall with LOC. #s/p fall likely 2/2 UTI -today without suprapubic tenderness, afebrile, without white count -continue on rocephin 1g IVPB qd - Today is Day 2 -Urine cx: lactose ferm gram - bacilli, >100,000 colonies -IVF as pt clinically dry for 24 hrs -Ballard (Day 2)- will do voiding trial tomorrow -orthostatics (+). repeat again today- still +, on IVF -d/w son and sister, pt has had vasovagal syncope for many years. also noticed to have shuffling gait. will likely need neuro f/u as outpt, may have caused mechanical fall -monitoring on tele -PT evaluation -f/u ECHO as outpatient to check on small pericardial effusion status #Episodes of tachycardia -EKG checks as occur -see if improve while on IVF -on rate control - BB, metoprolol succinate 25mg PO qd #HTN- uncontrolled likely 2/2 discomfort -medications have been reconciled with pharmacy -started on home med metoprolol succinate 25mg PO qd #Dementia -Continue aricept 5mg PO qd #F/E/N IV NS 75 cc/hr -1 bag. Avoid overhydration as pt with small pericardial effusion monitor lytes- especially Mg, phosph sodium controlled diet #PPX DVT: Hep 5000 SQ TID #Dispo -continued tele monitoring Visit type - Emergency Visit Emergency Visit: No - New Patient This patient is new to me today: No - Critical Care Critical Care patient: No
[2017-11-07] MEDS ORDERED: SODIUM CHLORIDE 1,000 ML IV ONE (10:44)
--- NOTE | 2017-11-07 11:43 | PN ---
Teaching Attending Note Name of Resident: Dunia Tapia ATTENDING PHYSICIAN STATEMENT I saw and evaluated the patient. I reviewed the resident's note and discussed the case with the resident. I agree with the resident's findings and plan as documented. SUBJECTIVE: no pain, fever , chills, SOB , or weakness. No events over night OBJECTIVE: NAD, MMM. No JVD Cv: RRR Lungs: CTAB Ext: no edema Abd: soft, NT, ND , NL BS . ASSESSMENT AND PLAN: 82 y/o lady with h/o HTN and dementia who presented after an unwitnessed fall. she was found to have UTI. 1- Unwitnessed fall: Most likely mechanical but can't r/o syncope. orthostatic hypotension was found and could definitely be the cause PT eval tele with episodes of narrow complex tachycardia EKG obtained , with what looks like junctional tachycardia. - treat UTI - repeat orthostatic VS on hydration . - cont BB and follow frequency of those tachycardic episodes 2- UTI with urinary retention - cont ceftriaxone day 2 . follow urine cx - cont taylor. will do voiding trial tomorrow 3- DVT prophylaxis : SQ heparin
[2017-11-07] MEDS: DONEPEZIL HCL 5 MG TABLET (FP) PO SCH (22:33)
[2017-11-08] MEDS: HEPARIN NA (PORCINE) 5,000 UNITS/ML 1ML VIAL SQ SCH ×3 (06:13→21:35)
[2017-11-08 07:29] LABS: BASO % 0.8 % (0-2.0); EOS % 2.7 % (0-4.5); HEMATOCRIT 39.3 % (32.4-45.2); HEMOGLOBIN 13.5 GM/dL (10.7-15.3); LYMPH % 32.2 % (8-40); MCH 32.1 pg (25.7-33.7); MCHC 34.4 g/dl (32.0-36.0); MEAN CELL VOLUME 93.4 fl (80-96); MONO % 11.5 % (3.8-10.2); NEUT % 52.8 % (42.8-82.8); PLATELET COUNT 168 K/MM3 (134-434); RDW 13.3 % (11.6-15.6); WHITE BLOOD COUNT 5.9 K/mm3 (4.0-10.0)
[2017-11-08 07:52] LABS: CHLORIDE 113 mmol/L (98-107); POTASSIUM 3.8 mmol/L (3.5-5.1); SODIUM 143 mmol/L (136-145)
[2017-11-08 07:57] LABS: ANION GAP 7 (8-16); BLOOD UREA NITROGEN 16 mg/dL (7-18); CALCIUM 8.4 mg/dL (8.5-10.1); CO2 23 mmol/L (21-32); CREATININE 0.9 mg/dL (0.55-1.02); GLUCOSE,RANDOM 88 mg/dL (74-106); MAGNESIUM 2.2 mg/dL (1.8-2.4); PHOSPHOROUS 3.6 mg/dL (2.5-4.9)
[2017-11-08] MEDS ORDERED: DEXTROSE 5%-WATER - 50 ML IVPB ONE (09:58)
[2017-11-08] MEDS ORDERED: cefTRIAXone SODIUM 1 GM VIAL ONE (09:58)
[2017-11-08] MEDS: PANTOPRAZOLE 40 MG TABLET (FP) PO SCH (10:00)
[2017-11-08] MEDS: metoPROLOL SUCCINATE 25 MG TAB.SR.24H (FP) PO SCH (10:01)
[2017-11-08] MEDS: CEFTRIAXONE 1 GM in DEXTROSE 5%-WATER - 50 ML IVPB SCH (10:01)
--- NOTE | 2017-11-08 15:01 | PN ---
Progress Note (short form) - Note Progress Note: Subjective: no pain , no light headedness. no abd pain . Objective: Vital Signs: Last Vital Signs Temp Pulse Resp BP Pulse Ox 97 F L 92 H 20 157/113 96 11/08/17 10:00 11/08/17 10:00 11/08/17 10:00 11/08/17 10:00 11/08/17 09:00 Laboratory Results - last 24 hr 11/08/17 11/08/17 06:00 06:00 WBC 5.9 RBC 4.20 Hgb 13.5 Hct 39.3 MCV 93.4 MCH 32.1 MCHC 34.4 RDW 13.3 Plt Count 168 MPV 9.0 Neutrophils % 52.8 Lymphocytes % 32.2 D Monocytes % 11.5 H Eosinophils % 2.7 Basophils % 0.8 Sodium 143 Potassium 3.8 Chloride 113 H Carbon Dioxide 23 Anion Gap 7 L BUN 16 Creatinine 0.9 Random Glucose 88 Calcium 8.4 L Phosphorus 3.6 Magnesium 2.2 Physical Exam: NAD, MMM. No JVD Cv: RRR Lungs: CTAB Ext: no edema Abd: soft, NT, ND , NL BS . ASSESSMENT AND PLAN: 82 y/o lady with h/o HTN and dementia who presented after an unwitnessed fall. she was found to have UTI. 1- Unwitnessed fall: Most likely mechanical but can't r/o syncope. orthostatic hypotension was found and could definitely be the cause PT eval i still pending tele with episodes of narrow complex tachycardia ( looks sinus ) - repeat orthostatic VS 2- UTI with urinary retention . Urine cx noted. - cont ceftriaxone day 3. - Dc taylor for voiding trial 3- DVT prophylaxis : SQ heparin dispo : dc pending PT eval and resolution of orthostatic hypotension Visit type - Emergency Visit Emergency Visit: Yes ED Registration Date: 11/07/17 Care time: The patient presented to the Emergency Department on the above date and was hospitalized for further evaluation of their emergent condition. - New Patient This patient is new to me today: No - Critical Care Critical Care patient: No
[2017-11-08] MEDS ORDERED: SODIUM CHLORIDE 1,000 ML IV SCH (16:00)
[2017-11-08] MEDS: DONEPEZIL HCL 5 MG TABLET (FP) PO SCH (21:35)
[2017-11-09] MEDS: HEPARIN NA (PORCINE) 5,000 UNITS/ML 1ML VIAL SQ SCH ×2 (05:55→14:19)
[2017-11-09] MEDS ORDERED: metoPROLOL SUCCINATE 25 MG TAB.SR.24H (FP) PO SCH (09:00)
[2017-11-09] MEDS ORDERED: cefTRIAXone SODIUM 1 GM VIAL ONE (10:00)
[2017-11-09] MEDS ORDERED: DEXTROSE 5%-WATER - 50 ML IVPB ONE (10:00)
[2017-11-09] MEDS: PANTOPRAZOLE 40 MG TABLET (FP) PO SCH (10:06)
[2017-11-09] MEDS: CEFTRIAXONE 1 GM in DEXTROSE 5%-WATER - 50 ML IVPB SCH (10:06)
[2017-11-09 10:11] VITALS: BP 136/86; PULSE 116; TEMP 97.5
--- NOTE | 2017-11-09 13:12 | PN ---
Teaching Attending Note Name of Resident: Dunia Tapia ATTENDING PHYSICIAN STATEMENT I saw and evaluated the patient. I reviewed the resident's note and discussed the case with the resident. I agree with the resident's findings and plan as documented. SUBJECTIVE: no fever or chills. no CP or SOB. OBJECTIVE: NAD, MMM. No JVD Cv: RRR Lungs: CTAB Ext: no edema Abd: soft, NT, ND , NL BS . ASSESSMENT AND PLAN: 82 y/o lady with h/o HTN and dementia who presented after an unwitnessed fall. she was found to have UTI. 1- Unwitnessed fall: Most likely mechanical but can't r/o syncope. orthostatic hypotension was found and could definitely be the cause PT eval reviewed. tele with improved episodes of tachycardia . - repeat orthostatic VS with improved BP, only some drop in diastolic pressure now 2- UTI with urinary retention . taylor out. no retention - ceftriaxone day 4. cont vantin for total of 7 DC today
--- NOTE | 2017-11-09 16:35 | DS ---
Physical Exam: SUBJECTIVE: Patient seen and examined at bedside. Ballard removed yesterday, and pt voiding freely. No acute events overnight; pt no longer with tachycardic episodes seen on monitor. Today, pt in good spirits with aid and daughter at bedside. Denies CUI, fever, chills, SOB, chest pain, or changes in urinary or bowel function. OBJECTIVE: Vital Signs Period Temp Pulse Resp BP Sys/Miller Pulse Ox Last 24 Hr 97.3 F-99 F 63-130 16-20 126-165/71-96 96-96 PHYSICAL EXAM GENERAL: The patient is pleasantly confused. AAOx2, in no acute distress. HEAD: Normal with no signs of trauma. EYES: PERRL, extraocular movements intact, sclera anicteric, conjunctiva clear. ENT: Ears normal, nares patent, oropharynx clear without exudates, moist mucous membranes. NECK: Trachea midline, supple. LUNGS: Breath sounds equal, clear to auscultation bilaterally, no wheezes, no crackles, no accessory muscle use. HEART: Regular rate and rhythm, S1, S2 without murmur, rub or gallop. ABDOMEN: Soft, nontender, nondistended, normoactive bowel sounds, no guarding EXTREMITIES: 2+ posterior tibial pulses, warm, well-perfused, no edema. NEUROLOGICAL: Cranial nerves II through XII grossly intact. Normal speech PSYCH: Normal mood, normal affect. SKIN: Warm, dry, normal turgor LABS Urinalysis 11/05/17 21:00 Urine Protein Negative Urine Glucose (UA) Negative Urine Ketones Negative Urine Blood 1+ H Urine Bilirubin Negative Urine Urobilinogen Negative Ur Leukocyte Esterase 2+ H Urine WBC (Auto) 8 Additional testing 11/05/17 11/05/17 11/06/17 19:15 19:15 05:52 WBC 12.6 H D 7.6 D BUN 29 H Creatinine 1.1 H 11/06/17 11/07/17 11/07/17 05:52 06:00 06:00 WBC 5.2 D BUN 22 H 16 Creatinine 1.0 0.9 11/08/17 11/08/17 06:00 06:00 WBC 5.9 Hgb 13.5 Hct 39.3 Plt Count 168 BUN 16 Creatinine 0.9 IMAGING 11/05/17: CXR: no acute disease, no infiltrates, calcified thoracic aorta 11/05/17: Head CT: no acute hemorrhage, acute chronic sinusitis 11/05/17: Hip/pelvis XR: osteopenia, no dislocation, or fx 11/05/17 Ribs XR: no rib fx 11/05/17: Cervical spine CT: degenerative arthritis, no fx 11/06/17: Carotid doppler study: intimal thickening and minimal plaque buildup at the common carotid bifurcation and bulb, bilaterally withut evidence of hemodynamically significant stenosis, bilaterally. 11/06/17: ECHO: EF 59.4, mild MR, TR, moderate aortic sclerosis, trivial pericardial effusion not hemodynamically significant EKG: NSR, sinus bradycardia, HR 50's > repeat, sinus tach 110's. without st-t wave changes HOSPITAL COURSE: Date of Admission:11/07/17 Date of Discharge: 11/09/17 Admit diagnosis: s/p fall, UTI with urinary retention 82 y/o F with PMH HTN and dementia, who presented to the hospital s/p fall and LOC. On admission, pt did not remember what happened before or after the fall, but only recalls falling several feet from her bed. She denied associated chest pain, shortness of breath, nausea, vomiting, diarrhea, fevers, chills, dysuria or polyuria. She has had syncopal episodes in the past for which she was worked up at [facility] in 2016 (Previous echo, (66% EF, elevated RVSP 30-40, aortic sclerosis)). Pt admitted s/p fall as well as UTI with urinary retention. While patient was maintained on the floor, her UA was (+) for E.coli UTI and she was treated with rocephin 1g IVPB qd for a four day course. She is being sent home on cefpodoxime 200mg PO BID for seven additional days. While pt was in the hospital, she also underwent imaging after fall, which was negative for acute fx or dislocation. As her orthostatic vitals were also positive, she was gently hydrated. Upon discharge, pt recommended home physical therapy, discussed with social services aide and aid, family at bedside upon dc. Additionally, while pt was on floor, she was noted to have episodes of sinus tach or possible junctional rhythm on telemetry monitoring. Pt was continued on metoprolol succinate for rate control, however her dose was halved to 12.5mg PO qd. She is being sent home on this dose, however will need to follow with her primary care doctor in a week to discuss this dosage change. Pt will also need f/u with an ECHO as outpatient to check on small pericardial effusion that was noted while here. Minutes to complete discharge: 40 Discharge Summary Reason For Visit: SYNCOPE AND COLLAPSE Condition: Improved - Instructions Diet, Activity, Other Instructions: You were in the hospital because you fell at home. It is possible that you passed out or tripped and fell. While you were here, you were hydrated with fluids and given antibiotics. You were found to have a urinary tract infection. We recommend you complete home physical therapy, this will be set up through visiting nurse services. We are sending you home on the following antibiotic for your urinary tract infection: vantin 200mg (capsule) twice a day, for the next seven days. We have changed your metoprolol dose to 12.5 mg daily. We are also giving you a prescription for a commode and rolling walker upon your request. Please follow up with your primary care physician, Dr. Daniel Sinha in a week to discuss your hospital visit. If you develop chest pain or shortness of breath, please go to the hospital. We hope you feel better soon. It is important to stay hydrated. Try not to get up quickly form sitting position as it could cause your blood pressure to drop. Referrals: Cathy Suarez MD [Primary Care Provider] - Disposition: HOME - Home Medications Comprehensive Discharge Medication List: Ambulatory Orders Bupropion HCl [Bupropion HCl Sr] 150 mg PO DAILY 04/13/16 Donepezil HCl 5 mg PO DAILY 04/13/16 Lipase/Protease/Amylase [Sun Almazan 36,000 Units Capsule] 1 each PO TID 04/13/16 Omeprazole 40 mg PO DAILY 04/13/16 Polyethylene Glycol 3350 [Miralax 119 gm Btl -] 17 gm PO BID 04/13/16 Cefpodoxime Proxetil [Vantin -] 200 mg PO Q12H #14 tablet 11/09/17 Metoprolol Succinate [Toprol XL -] 12.5 mg PO DAILY #30 tab.sr.24h 11/09/17 Miscellaneous Drug Not In Syst [Outpatient Lab Test] 1 each ASDIR #1 misc Miscellaneous Drug Not In Syst [Outpatient Lab Test] 1 each ASDIR #1 [facility] [place] This patient is new to me today: No Emergency Visit: No Critical Care patient: No - Discharge Referral Referred to [facility] No
--- NOTE | 2017-11-10 00:33 | EKG ---
Test Reason : Blood Pressure : / mmHG Vent. Rate : 058 BPM Atrial Rate : 058 BPM P-R Int : 180 ms QRS Dur : 090 ms QT Int : 378 ms P-R-T Axes : 055 -42 066 degrees QTc Int : 371 ms SINUS BRADYCARDIA WITH BLOCKED PREMATURE ATRIAL COMPLEXES WITH OCCASIONAL PREMATURE VENTRICULAR COMPLEXES LEFT AXIS DEVIATION NONSPECIFIC ST ABNORMALITY ABNORMAL ECG WHEN COMPARED WITH ECG OF 07-NOV-2017 10:08, SINUS RHYTHM HAS REPLACED ECTOPIC ATRIAL RHYTHM VENT. RATE HAS DECREASED BY 56 BPM Confirmed by MANUEL INGRAM MD ([id number]) on 11/10/2017 12:33:02 AM Referred By: Skye ADVIS Confirmed By:MANUEL INGRAM MD
--- NOTE | 2017-11-10 00:34 | EKG ---
Test Reason : Blood Pressure : / mmHG Vent. Rate : 114 BPM Atrial Rate : 114 BPM P-R Int : 000 ms QRS Dur : 088 ms QT Int : 344 ms P-R-T Axes : 261 -44 065 degrees QTc Int : 474 ms SINUS TACHYCARDIA LEFT AXIS DEVIATION ABNORMAL ECG WHEN COMPARED WITH ECG OF 06-NOV-2017 02:59, VENT. RATE HAS INCREASED BY 58 BPM Confirmed by MANUEL INGRAM MD ([id number]) on 11/10/2017 12:33:43 AM Referred By: Skye DAVIS Confirmed By:MANUEL INGRAM MD
== END 2017-11-09 15:34 | disposition home or self-care (01) | DRG 690 ==
LOC: JER 18:11 → JERBED 22:57 → J2W 11-06 02:00 → J4S 11-06 07:46 → OBSVTOIN 11-07 10:45
PROVIDERS: ADMIT Internal Medicine; ATTEND Internal Medicine
DX: N39.0 Urinary tract infection, site not specified (principal); I31.3 Pericardial effusion (noninflammatory); I95.2 Hypotension due to drugs; R33.9 Retention of urine, unspecified; R55 Syncope and collapse; T44.7X5A Adverse effect of beta-adrenoreceptor antagonists, initial encounter; I10 Essential (primary) hypertension; F03.90 Unspecified dementia, unspecified severity, without behavioral disturbance, psychotic disturbance, mood disturbance, and anxiety; B96.20 Unspecified Escherichia coli [E. coli] as the cause of diseases classified elsewhere
CPT/HCPCS: 36415; 70450-TC; 71046-TC-FY; 71101-TC-RT-FY; 72125-TC; 73523-TC-FY; 80048; 80053; 81003; 81015; 82550; 83735; 84100; 84484; 85025; 85027; 85610; 87086; 87186; 93005; 93010; 93306-TC; 93880-TC; 97116-GP; 97161-GP; 99285-25; G0378; J1644; J7030

== ENCOUNTER 2017-11-10 19:41 | Observation (INO) | payer OTHER ==
--- NOTE | 2017-11-10 20:22 | PDOC ---
History of Present Illness - General Chief Complaint: Syncope/Near Syncope Stated Complaint: Syncope/Near Syncope Time Seen by Provider: 11/10/17 20:13 History Source: EMS, Old Records Exam Limitations: Dementia - History of Present Illness Initial Comments: 11/10/17 21:27 82-year-old woman who is a poor historian due to her dementia. Per EMS reports patient syncopized while at home today. Patient lives at home with her and she states her son comes by to help out occasionally. Patient with poor memory of events today. Per old records patient is currently being treated for urinary tract infection. Past History - Past Medical History Allergies/Adverse Reactions: Allergies Allergy/AdvReac Type Severity Reaction Status Date / Time No Known Allergies Allergy Verified 11/10/17 20:36 Home Medications: Ambulatory Orders Bupropion HCl [Bupropion HCl Sr] 150 mg PO DAILY 04/13/16 Donepezil HCl 5 mg PO DAILY 04/13/16 Lipase/Protease/Amylase [Creon Dr 36,000 Units Capsule] 1 each PO TID 04/13/16 Omeprazole 40 mg PO DAILY 04/13/16 Polyethylene Glycol 3350 [Miralax 119 gm Btl -] 17 gm PO BID 04/13/16 Cefpodoxime Proxetil [Vantin -] 200 mg PO Q12H #14 tablet 11/09/17 Metoprolol Succinate [Toprol XL -] 12.5 mg PO DAILY #30 tab.sr.24h 11/09/17 Miscellaneous Drug Not In Syst [Outpatient Lab Test] 1 each [place] [facility] [place]iscellaneous Drug Not In Syst [Outpatient Lab Test] 1 each [place] [facility] [place] Anemia: No Asthma: No Cancer: No Cardiac Disorders: No CVA: No (syncopal episodes) COPD: No CHF: Yes Dementia: No Diabetes: No GI Disorders: Yes (DIVERTICULITIS, NAUSEA, CHRONIC CONSTIPATION, IBS) Disorders: No HTN: Yes Hypercholesterolemia: Yes Liver Disease: No Seizures: No Thyroid Disease: No - Surgical History Abdominal Surgery: No Appendectomy: No Cardiac Surgery: No Cholecystectomy: No Lung Surgery: No Neurologic Surgery: No Orthopedic Surgery: Yes - Immunization History Immunization Up to Date: Yes - Suicide/Smoking/Psychosocial Hx Smoking Status: No Smoking History: Never smoked Have you smoked in the past 12 months: No Number of Cigarettes Smoked Daily: 0 Hx Alcohol Use: No Drug/Substance Use Hx: No Substance Use Type: None Hx Substance Use Treatment: No Cardiac Specific PMH - Complaint Specific PMHX Pacemaker: No Review of Systems - Review of Systems Able to Perform ROS?: No (dementia) Is the patient limited Azeri proficient: No *Physical Exam - Vital Signs Last Vital Signs Temp Pulse Resp BP Pulse Ox 97.2 F L 53 L 17 132/72 95 11/10/17 20:15 11/10/17 20:15 11/10/17 20:15 11/10/17 20:15 11/10/17 20:15 - Physical Exam General Appearance: Yes: Appropriately Dressed. No: Apparent Distress HEENT: positive: Normal ENT Inspection Neck: positive: Trachea midline, Supple Respiratory/Chest: positive: Lungs Clear, Normal Breath Sounds. negative: Respiratory Distress, Accessory Muscle Use Cardiovascular: positive: Regular Rhythm, S1, S2, Bradycardia. negative: Edema , Murmur Gastrointestinal/Abdominal: positive: Normal Bowel Sounds, Soft. negative: Tender Musculoskeletal: positive: Normal Inspection. negative: CVA Tenderness Extremity: positive: Normal Capillary Refill, Normal Inspection, Normal Range of Motion Integumentary: positive: Normal Color, Dry, Warm Neurologic: positive: otolaryngology teacher II-XII NML intact, Alert, Normal Response, Motor Strength 5/5, Confused Moderate Sedation - Procedure Monitoring Vital Signs: Vital Signs Temp Pulse Resp BP Pulse Ox 97.2 F L 53 L 17 132/72 95 11/10/17 20:15 11/10/17 20:15 11/10/17 20:15 11/10/17 20:15 11/10/17 20:15 ED Treatment Course - LABORATORY CBC & Chemistry Diagram: 11/10/17 21:10 11/10/17 21:10 - ADDITIONAL ORDERS Additional order review: Laboratory Results 11/10/17 11/10/17 21:10 21:10 PT with INR 11.60 INR 1.03 Sodium 142 Potassium 4.1 Chloride 109 H Carbon Dioxide 25 Anion Gap 8 BUN 22 H Creatinine 1.2 H Creat Clearance w eGFR 43.01 Random Glucose 112 H Calcium 8.6 Magnesium 2.4 Total Bilirubin 0.3 AST 32 ALT 36 Alkaline Phosphatase 85 Creatine Kinase 68 Troponin I < 0.02 Total Protein 6.1 L Albumin 3.2 L 11/10/17 21:10 RBC 4.23 MCV 93.9 MCHC 34.1 RDW 13.7 MPV 8.4 Neutrophils % 77.8 D Lymphocytes % 12.8 D Monocytes % 7.8 Eosinophils % 1.2 Basophils % 0.4 - RADIOLOGY Radiology Studies Ordered: Category Date Time Status HEAD CT WITHOUT CONTRAST [CT] Stat CT Scan 11/10/17 21:40 Completed CHEST - PA [RAD] Stat Radiology 11/10/17 20:23 Taken - Medications Given in the ED: ED Medications Discontinued Medications Generic Name Dose Route Start Last Admin Trade Name Terryq PRN Reason Stop Dose Admin Aspirin 162 mg 11/10/17 20:23 11/10/17 21:36 Asa - PO 11/10/17 20:24 162 mg ONCE ONE Administration Medical Decision Making - Medical Decision Making 11/10/17 21:55 A/P: 82-year-old woman with history of dementia who presents with syncopal episode while at home today. Patient is unsure if she hit her head but no trauma is noted Lungs clear to auscultation bilaterally Regular bradycardic rhythm. No murmur, rub or gallop noted. Abdomen soft nontender nondistended. No obvious bruising noted to the body Labs, EKG, chest x-ray, CT of the head, admission Carotid Dopplers performed on 11/06/17 revealed intimal thickening with minimal plaque buildup, carotid bifurcation ball, bilaterally without evidence of hemodynamically significant stenosis bilaterally. 11/10/17 22:22 EKG reviewed as read by Dr. bernabe: Sinus rhythm with rate of 61 with a first- degree AV block. AV block is new when compared to EKG performed on 11/07/17. CT of the head as read by Dr. Lomas: No definite interval changes identified in comparison of the CT prior study on . Periventricular and subcortical chronic microvascular ischemic changes noted which are at least moderate degree. Chronic left maxillary sinusitis 11/11/17 00:13 Wet read of chest x-ray by me Rios clear. Cardiac silhouette is within normal limits. Visualized osseous structures intact. Questionable atelectatic change in the left lower lobe Will admit the patient to hospitalist for syncope. *DC/Admit/Observation/Transfer Diagnosis at time of Disposition: Syncope and collapse - Discharge Dispostion Condition at time of disposition: Fair Decision to Admit order: Yes - Referrals Referrals: Cathy Suarez MD [Primary Care Provider] - - Patient Instructions - Post Discharge Activity
[2017-11-10] MEDS ORDERED: ASPIRIN 81 MG CHEWABLE TABLETS PO ONE (20:23)
--- NOTE | 2017-11-10 20:35 | PDOC ---
ED Treatment Course - LABORATORY CBC & Chemistry Diagram: 11/11/17 07:10 11/11/17 07:10 Medical Decision Making - Medical Decision Making 11/10/17 20:35 agree with care from BUFFY Galindo *DC/Admit/Observation/Transfer Diagnosis at time of Disposition: Syncope and collapse - Discharge Dispostion Condition at time of disposition: Fair - Referrals - Patient Instructions - Post Discharge Activity
[2017-11-10 20:36] VITALS: BMI 24.3
[2017-11-10] MEDS ORDERED: ASPIRIN 81 MG CHEWABLE TABLETS ONE (21:28)
[2017-11-10 21:52] LABS: BASO % 0.4 % (0-2.0); EOS % 1.2 % (0-4.5); HEMATOCRIT 39.7 % (32.4-45.2); HEMOGLOBIN 13.5 GM/dL (10.7-15.3); LYMPH % 12.8 % (8-40); MCHC 34.1 g/dl (32.0-36.0); MEAN CELL VOLUME 93.9 fl (80-96); MEAN PLT VOLUME 8.4 fl (7.5-11.1); MONO % 7.8 % (3.8-10.2); NEUT % 77.8 % (42.8-82.8); PLATELET COUNT 185 K/MM3 (134-434); RBC 4.23 M/mm3 (3.60-5.2); RDW 13.7 % (11.6-15.6); WHITE BLOOD COUNT 8.5 K/mm3 (4.0-10.0)
[2017-11-10 22:06] LABS: INR 1.03 (0.82-1.09); PROTHROMBIN TIME (PATIENT) 11.6 SEC (9.7-13.0)
[2017-11-10 22:11] LABS: ALBUMIN 3.2 g/dl (3.4-5.0); ANION GAP 8 (8-16); BLOOD UREA NITROGEN 22 mg/dL (7-18); CALCIUM 8.6 mg/dL (8.5-10.1); CHLORIDE 109 mmol/L (98-107); CO2 25 mmol/L (21-32); CREATININE 1.2 mg/dL (0.55-1.02); GLUCOSE,RANDOM 112 mg/dL (74-106); MAGNESIUM 2.4 mg/dL (1.8-2.4); POTASSIUM 4.1 mmol/L (3.5-5.1); SGOT/AST 32 U/L (15-37); SODIUM 142 mmol/L (136-145)
[2017-11-10 22:23] LABS: ALK PHOS 85 U/L (45-117); BILIRUBIN,TOTAL 0.3 mg/dL (0.2-1.0); SGPT/ALT 36 U/L (12-78); TOT PROT 6.1 g/dl (6.4-8.2)
--- NOTE | 2017-11-11 01:37 | HP ---
CHIEF COMPLAINT: syncope PCP: Dro. Cathy Shane HISTORY OF PRESENT ILLNESS: 82yo woman with PMH of HTN and dementia, recently discharged here 2 days ago for syncopal episode with unrevealing w/u, who presents similarly tonight after unwitnessed fall at home and found on the floor by EMS. Patient unable to recall events prior to fall. Currently denies any CUI, dizziness, blurry vision, chest pain or chest discomfort. During recent admission 11/06- she was treated for E. coli UTI and is on day 2 of Vantin 200mg BID treatment. Patient denies any urinary symptoms. ED course was notable for: (1) Head CT negative for acute intracranial bleed, mass, or infarct (2) (3) Recent Travel: none PAST MEDICAL HISTORY: see HPI PAST SURGICAL HISTORY: Social History: Per chart, pt lives at home with , son regularly checks on patient Smoking: never Alcohol: none Drugs: none Family History: non-contributory Allergies No Known Allergies Allergy (Verified 11/10/17 20:36) HOME MEDICATIONS: Home Medications Medication Instructions Recorded Bupropion HCl [Bupropion HCl Sr] 150 mg PO DAILY 04/13/16 Donepezil HCl 5 mg PO DAILY 04/13/16 Lipase/Protease/Amylase [Creon Dr 1 each PO TID 04/13/16 36,000 Units Capsule] Omeprazole 40 mg PO DAILY 04/13/16 Polyethylene Glycol 3350 [Miralax 17 gm PO BID 04/13/16 119 gm Btl -] Cefpodoxime Proxetil [Vantin -] 200 mg PO Q12H #14 tablet 11/09/17 Metoprolol Succinate [Toprol XL -] 12.5 mg PO DAILY #30 tab.sr.24h 11/09/17 Miscellaneous Drug Not In Syst 1 each ASDIR #1 [facility] [place] 11/09/17 [Outpatient Lab Test] Miscellaneous Drug Not In Syst 1 each ASDIR #1 [facility] [place] 11/09/17 [Outpatient Lab Test] REVIEW OF SYSTEMS CONSTITUTIONAL: Absent: fever, chills, diaphoresis, generalized weakness, malaise, loss of appetite, weight change HEENT: Absent: rhinorrhea, nasal congestion, throat pain, throat swelling, difficulty swallowing, mouth swelling, ear pain, eye pain, visual changes CARDIOVASCULAR: Absent: chest pain, syncope, palpitations, irregular heart rate, lightheadedness , peripheral edema RESPIRATORY: Absent: cough, shortness of breath, dyspnea with exertion, orthopnea, wheezing, stridor, hemoptysis GASTROINTESTINAL: Absent: abdominal pain, abdominal distension, nausea, vomiting, diarrhea, constipation, melena, hematochezia GENITOURINARY: Absent: dysuria, frequency, urgency, hesitancy, hematuria, flank pain, genital pain MUSCULOSKELETAL: Absent: myalgia, arthralgia, joint swelling, back pain, neck pain SKIN: Absent: rash, itching, pallor HEMATOLOGIC/IMMUNOLOGIC: Absent: easy bleeding, easy bruising, lymphadenopathy, frequent infections ENDOCRINE: Absent: unexplained weight gain, unexplained weight loss, heat intolerance, cold intolerance NEUROLOGIC: Absent: headache, focal weakness or paresthesias, dizziness, unsteady gait, seizure, mental status changes, bladder or bowel incontinence PSYCHIATRIC: Absent: anxiety, depression, suicidal or homicidal ideation, hallucinations. PHYSICAL EXAMINATION Vital Signs - 24 hr 11/10/17 20:15 Temperature 97.2 F L Pulse Rate 53 L Respiratory 17 Rate Blood Pressure 132/72 O2 Sat by Pulse 95 Oximetry (%) GENERAL: aax2, nad HEENT: PERRL, EOMI, sclera anicteric, conjunctiva clear, no pharyngeal erythema NECK: supple, no nuchal rigidity LUNGS: CTAB HEART: rrr, normal s1/s2, no m/r/g ABDOMEN: soft, NTND, no suprapubic tenderness LOWER EXTREMITIES: 2+ DP pulses, wwp, edema NEUROLOGICAL: Cranial nerves II-XII intact. Normal speech. Laboratory Results - last 24 hr 11/10/17 11/10/17 11/10/17 21:10 21:10 21:10 WBC 8.5 D RBC 4.23 Hgb 13.5 Hct 39.7 MCV 93.9 MCH 32.0 MCHC 34.1 RDW 13.7 Plt Count 185 MPV 8.4 Neutrophils % 77.8 D Lymphocytes % 12.8 D Monocytes % 7.8 Eosinophils % 1.2 Basophils % 0.4 Nucleated RBC % 0 PT with INR 11.60 INR 1.03 Sodium 142 Potassium 4.1 Chloride 109 H Carbon Dioxide 25 Anion Gap 8 BUN 22 H Creatinine 1.2 H Creat Clearance w eGFR 43.01 Random Glucose 112 H Calcium 8.6 Magnesium 2.4 Total Bilirubin 0.3 AST 32 ALT 36 Alkaline Phosphatase 85 Creatine Kinase 68 Troponin I < 0.02 Total Protein 6.1 L Albumin 3.2 L 11/06/17: Carotid doppler study: intimal thickening and minimal plaque buildup at the common carotid bifurcation and bulb, bilaterally without evidence of hemodynamically significant stenosis, bilaterally. 11/06/17: ECHO: EF 59.4, mild MR, TR, moderate aortic sclerosis, trivial pericardial effusion not hemodynamically significant EKG: sinus rhythm with 1st degree AV block, LAD, RSR' or QR pattern in V1 suggests R ventricular conduction delay, QTc 455 ASSESSMENT/PLAN: 82yo woman with dementia, HTN, active treatment for UTI who BIBEMS after being being found on the floor. #syncope, 2D ECHO/Carotid dopplers 1 week ago were wnl -Continuous cardiac monitoring -Cardiology consulted -Trops neg x1, follow 2 more sets -Check Orthostatic vitals -Repeat 2D ECHO due to prior finding of pericardial effusion #s/p mechanical fall, Head CT neg -Fall precautions #NINA, Cr 1.2 today (0.9 two days ago) -Gentle hydration #HTN -c/w home meds #Dementia - c/w donezepil #asymptomatic bacteruria, s/p Rocephin IV x 4days, now on Vantin 200mg BID as OP , Day 2/7 -Repeat urine culture -c/w Vantin #FEN IVF NS@42cc/hr lytes wnl Na controlled diet #PPX DVT - HSQ Q8H #Physical therapy evaluation #DISPO: tele obs FULL code Visit type - Emergency Visit Emergency Visit: Yes ED Registration Date: 11/11/17 Care time: The patient presented to the Emergency Department on the above date and was hospitalized for further evaluation of their emergent condition. - New Patient This patient is new to me today: Yes Date on this admission: 11/11/17 - Critical Care Critical Care patient: No Hospitalist Screening - Colonoscopy Questionnaire Colonoscopy Questionnaire: Colonoscopy Questionnaire - Patient: 50 - 75 years old and never had a screening colonoscopy: No History of colon or rectal polyps, or CA: Unknown History of IBD, Crohn's disease or UC: Unknown History of abdominal radiation therapy as a child: Unknown - Relative: 1 with colon or rectal CA, or polyps at age 60 or younger: Unknown Colon or rectal CA diagnosed at age 45 or younger: Unknown Multiple relatives with colon or rectal CA: Unknown - Outcome: Screening Result: Negative Screen
--- NOTE | 2017-11-11 02:21 | PN ---
Teaching Attending Note Name of Resident: Sachi Aquino ATTENDING PHYSICIAN STATEMENT I saw and evaluated the patient. I reviewed the resident's note and discussed the case with the resident. I agree with the resident's findings and plan as documented. SUBJECTIVE: Patient is an 82-year-old woman with chief complaint of syncope. Says she has had multiple episodes before with negative workup. No head trauma, urinary or fecal incontinence. Just had ECHO and carotid doppler last month. She has dementia and is being treated for UTI with Vantin. OBJECTIVE: Alert and in no distress Vital Signs Period Temp Pulse Resp BP Sys/Miller Pulse Ox Last 24 Hr 97.2 F 53 17 132/72 95 HEENT: No Jaundice, eye redness or discharge, PERRLA, EOMI. External ears are normal and hearing is grossly intact. No nasal discharge. Neck: Supple, nontender. No palpable adenopathy or thyromegaly. No JVD Chest: Good effort. Clear to auscultation and percussion. Heart: Regular. No S3, rub or murmur Abdomen: Not distended, soft, nontender and no HSM. No rebound or guarding. Normoactive bowel sounds. Ext: Peripheral pulses intact. No leg edema. Skin: Warm and dry. No petechiae, rash or ecchymosis. Neuro: Alert. Oriented x2. Dementia - tends to drift and loose her thoughts. CN 2-12 grossly intact. Sensation grossly intact in all four extremities and DTR are symmetric. Current Medications Generic Name Dose Route Start Last Admin Trade Name Freq PRN Reason Stop Dose Admin Donepezil HCl 5 mg 11/11/17 10:00 Aricept - PO DAILY [facility] Metoprolol Succinate 12.5 mg 11/11/17 10:00 Toprol Xl - PO DAILY DARLIN Non-Formulary Medication 150 mg 11/11/17 10:00 Bupropion Hcl [Bupropion Hcl Sr] PO DAILY DARLIN Non-Formulary Medication 200 mg 11/11/17 02:15 Cefpodoxime Proxetil PO Q12H [facility] Non-Formulary Medication 40 mg 11/11/17 10:00 Omeprazole PO DAILY [facility] Pancrelipase 1 cap 11/11/17 06:00 Sun Almazan 36,000 Units Capsule PO TID DARLIN Polyethylene Glycol 17 gm 11/11/17 10:00 Miralax (For Daily Use) - PO BID [facility] Home Medications Medication Instructions Recorded Bupropion HCl [Bupropion HCl Sr] 150 mg PO DAILY 04/13/16 Donepezil HCl 5 mg PO DAILY 04/13/16 Lipase/Protease/Amylase [Creon Dr 1 each PO TID 04/13/16 36,000 Units Capsule] Omeprazole 40 mg PO DAILY 04/13/16 Polyethylene Glycol 3350 [Miralax 17 gm PO BID 04/13/16 119 gm Btl -] Cefpodoxime Proxetil [Vantin -] 200 mg PO Q12H #14 tablet 11/09/17 Metoprolol Succinate [Toprol XL -] 12.5 mg PO DAILY #30 tab.sr.24h 11/09/17 Miscellaneous Drug Not In Syst 1 each ASDIR #1 misc 11/09/17 [Outpatient Lab Test] Miscellaneous Drug Not In Syst 1 each ASDIR #1 misc 11/09/17 [Outpatient Lab Test] Laboratory Results - last 24 hr 11/10/17 11/10/17 11/10/17 21:10 21:10 21:10 WBC 8.5 D RBC 4.23 Hgb 13.5 Hct 39.7 MCV 93.9 MCH 32.0 MCHC 34.1 RDW 13.7 Plt Count 185 MPV 8.4 Neutrophils % 77.8 D Lymphocytes % 12.8 D Monocytes % 7.8 Eosinophils % 1.2 Basophils % 0.4 Nucleated RBC % 0 PT with INR 11.60 INR 1.03 Sodium 142 Potassium 4.1 Chloride 109 H Carbon Dioxide 25 Anion Gap 8 BUN 22 H Creatinine 1.2 H Creat Clearance w eGFR 43.01 Random Glucose 112 H Calcium 8.6 Magnesium 2.4 Total Bilirubin 0.3 AST 32 ALT 36 Alkaline Phosphatase 85 Creatine Kinase 68 Troponin I < 0.02 Total Protein 6.1 L Albumin 3.2 L ASSESSMENT AND PLAN: 1. Syncope - Will admit as an Observation case to telemetry because of bradycardia. Will get head CT, repeat UA and get carotid doppler. Consult cardiology. 2. UTI - Continue Vantin pending repeat UA. 3. DVT prophylaxis - Heparin 5000u sq tid 4. Advance directives - Full code
[2017-11-11] MEDS ORDERED: SODIUM CHLORIDE 1,000 ML IV SCH (02:30)
[2017-11-11 07:51] LABS: ANION GAP 8 (8-16); BLOOD UREA NITROGEN 22 mg/dL (7-18); CALCIUM 8.8 mg/dL (8.5-10.1); CHLORIDE 110 mmol/L (98-107); CO2 25 mmol/L (21-32); GLUCOSE,RANDOM 86 mg/dL (74-106); POTASSIUM 3.5 mmol/L (3.5-5.1); SODIUM 143 mmol/L (136-145)
[2017-11-11 07:52] LABS: HEMATOCRIT 39.7 % (32.4-45.2); HEMOGLOBIN 13.6 GM/dL (10.7-15.3); MCH 31.7 pg (25.7-33.7); MCHC 34.1 g/dl (32.0-36.0); MEAN PLT VOLUME 8.3 fl (7.5-11.1); PLATELET COUNT 203 K/MM3 (134-434); RBC 4.27 M/mm3 (3.60-5.2); RDW 13.7 % (11.6-15.6); WHITE BLOOD COUNT 7.2 K/mm3 (4.0-10.0)
[2017-11-11] MEDS: LIPASE/PROTEASE/AMYLASE 36,000 UNIT CAPSULE PO SCH ×3 (09:00→18:25)
--- NOTE | 2017-11-11 09:26 | CON.CARD ---
Consult Consult Specialty:: Cardiology Referred by:: Hospitalist Reason for Consultation:: Syncope - History of Present Illness Chief Complaint: Syncope History of Present Illness: 82 year old woman with a h/o HTN, Dementia, discharged from [facility] 2 days ago after admission with UTI possible syncope, orthostatic hypotension, as per report was home yesterday and had an unwitnessed fall possible syncope. Pt seen and examined in the ER in [facility]. Pt is awake and alert but does not recall why she is in the hospital and denies having had a fall or syncope. states she is feeling well. denies any chest pain, sob, palpitations, dizziness, lightheadedness, pnd, orthopnea, or LE edema. - History Source History Provided By: Patient, Medical Record Limitations to Obtaining History: Poor Historian - Past Medical History MANUFACTURING WEAVER: Yes: Dementia Cardio/Vascular: Yes: HTN - Alcohol/Substance Use Hx Alcohol Use: No - Smoking History Smoking history: Never smoked Have you smoked in the past 12 months: No Aproximately how many cigarettes per day: 0 - Social History ADL: Family Assistance History of Recent Travel: No Home Medications - Allergies Allergies/Adverse Reactions: Allergies Allergy/AdvReac Type Severity Reaction Status Date / Time No Known Allergies Allergy Verified 11/10/17 20:36 - Home Medications Home Medications: Ambulatory Orders Bupropion HCl [Bupropion HCl Sr] 150 mg PO DAILY 04/13/16 Donepezil HCl 5 mg PO DAILY 04/13/16 Lipase/Protease/Amylase [Sun Almazan 36,000 Units Capsule] 1 each PO TID 04/13/16 Omeprazole 40 mg PO DAILY 04/13/16 Polyethylene Glycol 3350 [Miralax 119 gm Btl -] 17 gm PO BID 04/13/16 Cefpodoxime Proxetil [Vantin -] 200 mg PO Q12H #14 tablet 11/09/17 Metoprolol Succinate [Toprol XL -] 12.5 mg PO DAILY #30 tab.sr.24h 11/09/17 Miscellaneous Drug Not In Syst [Outpatient Lab Test] 1 each ASDIR #1 misc Miscellaneous Drug Not In Syst [Outpatient Lab Test] 1 each ASDIR #1 misc Family Disease History - Family Disease History Family History: Denies Review of Systems - Review of Systems Constitutional: denies: No Symptoms, Chills, Diaphoresis, Fever, Lethargy, Loss of Appetite, Malaise, Night Sweats, Unintentional Wgt. Loss, Weakness, Other Eyes: denies: No Symptoms, Blind Spots, Blurred Vision, Double Vision, Eye Pain , Floaters, Photophobia, Recent Change in Vision, Other HENT: denies: No Symptoms, Difficult Swallowing, Ear Discharge, Ear Pain, Epistaxis, Gingival Bleeding, Hearing Loss, Mouth Swelling, Nasal Congestion, Ocular Prosthesis, Throat Pain, Toothache, Ringing in Ears, Other Neck: denies: No Symptoms, Decreased ROM, Lumps, Pain on Movement, Stiffness, Swollen Glands, Tenderness, Other Cardiovascular: denies: No Symptoms, Chest Pain, Edema, Palpitations, Shortness of Breath, Other Respiratory: denies: No Symptoms, Cough, Exercise Intolerance, Hemoptysis, Orthopnea, PND, Snoring, SOB, SOB on Exertion, Wheezing, Other Gastrointestinal: denies: No Symptoms, Abdominal Pain, Bloating, Constipation, Diarrhea, Dysphagia, Indigestion, Melena, Nausea, Rectal Bleeding, Vomiting, Vomiting Blood, Other Genitourinary: denies: No Symptoms, Burning, Discharge, Dysuria, Flank Pain, Frequency, Hematuria, Incontinence, Lesions, Menses, Pain, Testicular Mass, Testicular Pain, Testicular Swelling, Urgency, Vaginal Bleeding, Other Breasts: denies: No Symptoms Reported, See HPI, Breast Implants, Discharge from Nipple, Lumps, Pain, Skin Changes, Other Musculoskeletal: denies: No Symptoms, Back Pain, Crepitus, Decreased ROM, Extremity Pain, Joint Pain, Joint Swelling, Muscle Pain, Muscle Cramps, Muscle Weakness, Other Integumentary: denies: No Symptoms, Blister, Bruising, Change in Color, Eczema, Erythema, Incision, Lesions, Lump, Pallor, Pruritis, Rash, Wound, Other Neurological: reports: Syncope. denies: No Symptoms, Change in LOC, Change in Speech, Confusion, Dizziness, Headache, Incoordination, Numbness, Parasthesia, Pre-Existing Deficit, Seizure, Tremors, Unsteady Gait, Weakness, Other Endocrine: denies: No Symptoms, Excessive Sweating, Flushing, Increased Hunger, Increased Thirst, Intolerance to Cold, Intolerance to Heat, Unexplained Weight Gain, Unexplained Weight Loss, Other Hematology/Lymphatic: denies: No Symptoms, Easily Bruised, Excessive Bleeding, Swollen Glands, Other Psychiatric: denies: No Symptoms, Altered Sleep Pattern, Anxiety, Depression, Hallucinations, Panic, Paranoia, Suicidal, Other - Risk Factors Known Risk Factors: Yes: Age, Hypertension Vital Signs: Vital Signs Temperature 97.2 F L 11/10/17 20:15 Pulse Rate 70 11/11/17 08:47 Respiratory Rate 17 11/11/17 08:47 Blood Pressure 171/90 11/11/17 08:47 O2 Sat by Pulse Oximetry (%) 99 11/11/17 08:47 Constitutional: Yes: Well Nourished, No Distress, Calm Eyes: Yes: WNL, Conjunctiva Clear, EOM Intact HENT: Yes: WNL, Atraumatic, Normocephalic Neck: Yes: WNL, Supple, Trachea Midline Respiratory: Yes: WNL, Regular, CTA Bilaterally. No: Rales, Rhonchi, Wheezes Gastrointestinal: Yes: WNL, Normal Bowel Sounds, Soft. No: Distention, Tenderness Renal/: Yes: WNL Cardiovascular: Yes: WNL, Regular Rate and Rhythm. No: Bradycardia, Tachycardia , Pulse Irregular, Gallop, Rub, Varicosities JVD: No Carotid Bruit: No PMI: Non-Displaced Heart Sounds: Yes: S1, S2. No: Split S2, S3, S4, Clicks, Gallop, Rub, Bruit Murmur: No: Systolic Murmur, Diastolic Murmur Musculoskeletal: Yes: WNL Extremities: Yes: WNL Edema: No Peripheral Pulses WNL: Yes Peripheral Pulses: 2+ Left Doralis Pedis, 2+ Right Dorsalis Pedis Neurological: Yes: Alert Psychiatric: Yes: Alert - Other Data Labs, Other Data: CBC, BMP 11/11/17 07:10 11/11/17 07:10 INR, PTT INR 1.03 (0.82-1.09) 11/10/17 21:10 Troponin, BNP 11/10/17 21:10 Troponin I < 0.02 Troponin, BNP 11/10/17 21:10 Troponin I < 0.02 EKG-NSR 61bpm 1st deg AVB, RSR pattern, NSST Echo: Report Reviewed Imaging - Results Chest X-ray: Report Reviewed, Image Reviewed EKG: Report Reviewed, Image Reviewed Other: Report Reviewed, Image Reviewed Assessment/Plan 82 year old woman with a h/o HTN, Dementia, discharged from [facility] 2 days ago after admission with UTI possible syncope, orthostatic hypotension, as per report was home yesterday and had an unwitnessed fall possible syncope. Unwitnessed fall-possible syncope, recent admit for similar event attributed to UTI and orthostatic hypotension -orthostatic BP was wnl on discharge 11/09 -repeat orthostatic BP -tx UTI if active -IVF hydration if needed -echo done 11/06/17 showed normal LV systolic function, mild valvular abnl, trivial pericardial effusion -repeat echo was ordered but unlikely to have changed -carotid doppler 11/06/17- mild plaque no sig stenosis -unlikely arrhythmia, no events on tele last admission, dc tele -no additional inpatient cardiac work up needed at this point. Please call with any additional questions.
[2017-11-11] MEDS ORDERED: metoPROLOL SUCCINATE 25 MG TAB.SR.24H (FP) PO SCH (10:00)
[2017-11-11] MEDS ORDERED: CEFPODOXIME PROXETIL 200 MG TABLET [NF] PO SCH (10:00)
[2017-11-11] MEDS ORDERED: PANTOPRAZOLE 40 MG TABLET (FP) PO SCH (10:00)
[2017-11-11] MEDS ORDERED: DONEPEZIL HCL 5 MG TABLET (FP) PO SCH (10:00)
[2017-11-11] MEDS ORDERED: POLYETHYLENE GLYCOL 3350 119 GM BTL PO SCH (10:00)
[2017-11-11 12:30] LABS: URINE APPEARANCE CLEAR; URINE BILIRUBIN NEGATIVE (<2.0 mg/dL); URINE COLOR YELLOW; URINE GLUCOSE (UA) NEGATIVE (NEGATIVE); URINE KETONE NEGATIVE (NEGATIVE); URINE LEUK ESTERASE NEGATIVE (NEGATIVE); URINE NITRITE NEGATIVE (NEGATIVE); URINE PROTEIN NEGATIVE (NEGATIVE); URINE UROBILINOGEN NEGATIVE mg/dL (0.2-1.0)
--- NOTE | 2017-11-11 14:26 | EKG ---
Test Reason : Blood Pressure : / mmHG Vent. Rate : 063 BPM Atrial Rate : 063 BPM P-R Int : 218 ms QRS Dur : 090 ms QT Int : 452 ms P-R-T Axes : 049 -36 046 degrees QTc Int : 462 ms SINUS RHYTHM WITH 1ST DEGREE A-V BLOCK LEFT AXIS DEVIATION RSR' OR QR PATTERN IN V1 SUGGESTS RIGHT VENTRICULAR CONDUCTION DELAY NONSPECIFIC T WAVE ABNORMALITY ABNORMAL ECG WHEN COMPARED WITH ECG OF 07-NOV-2017 10:09, PREMATURE VENTRICULAR COMPLEXES ARE NO LONGER PRESENT PREMATURE ATRIAL COMPLEXES ARE NO LONGER PRESENT [place] INTERVAL HAS INCREASED RSR' PATTERN IN V1 IS NOW PRESENT Confirmed by OPAL HAM, NIDRA ([id number]) on 11/11/2017 2:26:27 PM Referred By: Confirmed By:INDRA JOSEPH MD
--- NOTE | 2017-11-11 16:53 | PN ---
Physical Exam: SUBJECTIVE: Patient seen and examined at bedside. Earlier in AM, pt states that she does not know how she ended up in the hospital. Later in afternoon, pt aware that she was here recently, and has returned d/t unsteadiness. Pleasantly confused. Walked with PT this afternoon using rolling walker, OBJECTIVE: Vital Signs Period Temp Pulse Resp BP Sys/Miller Pulse Ox Last 24 Hr 97.2 F 53-70 17-17 132-171/72-90 95-99 GENERAL: The patient is awake, alert, and fully oriented, in no acute distress. HEAD: Normal with no signs of trauma. EYES: PERRL, extraocular movements intact, sclera anicteric, conjunctiva clear. No ptosis. ENT: Ears normal, nares patent, oropharynx clear without exudates, moist mucous membranes. NECK: Trachea midline, full range of motion, supple. LUNGS: Breath sounds equal, clear to auscultation bilaterally, no wheezes, no crackles, no accessory muscle use. HEART: Regular rate and rhythm, S1, S2 without murmur, rub or gallop. ABDOMEN: Soft, nontender, nondistended, normoactive bowel sounds, no guarding, no rebound, no hepatosplenomegaly, no masses. EXTREMITIES: 2+ pulses, warm, well-perfused, no edema. NEUROLOGICAL: Cranial nerves II through XII grossly intact. Normal speech, gait not observed. PSYCH: Normal mood, normal affect. SKIN: Warm, dry, normal turgor, no rashes or lesions noted Laboratory Results - last 24 hr 11/10/17 11/10/17 11/10/17 21:10 21:10 21:10 WBC 8.5 D RBC 4.23 Hgb 13.5 Hct 39.7 MCV 93.9 MCH 32.0 MCHC 34.1 RDW 13.7 Plt Count 185 MPV 8.4 Neutrophils % 77.8 D Lymphocytes % 12.8 D Monocytes % 7.8 Eosinophils % 1.2 Basophils % 0.4 Nucleated RBC % 0 PT with INR 11.60 INR 1.03 Sodium 142 Potassium 4.1 Chloride 109 H Carbon Dioxide 25 Anion Gap 8 BUN 22 H Creatinine 1.2 H Creat Clearance w eGFR 43.01 Random Glucose 112 H Calcium 8.6 Magnesium 2.4 Total Bilirubin 0.3 AST 32 ALT 36 Alkaline Phosphatase 85 Creatine Kinase 68 Troponin I < 0.02 Total Protein 6.1 L Albumin 3.2 L Urine Color Urine Appearance Urine pH Ur Specific [place] Urine Protein Urine Glucose (UA) Urine Ketones Urine Blood Urine Nitrite Urine Bilirubin Urine Urobilinogen Ur Leukocyte Esterase 11/11/17 11/11/17 11/11/17 07:10 07:10 07:10 WBC 7.2 RBC 4.27 Hgb 13.6 Hct 39.7 MCV 93.0 MCH 31.7 MCHC 34.1 RDW 13.7 Plt Count 203 MPV 8.3 Neutrophils % Lymphocytes % Monocytes % Eosinophils % Basophils % Nucleated RBC % PT with INR INR Sodium 143 Potassium 3.5 Chloride 110 H Carbon Dioxide 25 Anion Gap 8 BUN 22 H Creatinine 1.0 Creat Clearance w eGFR Random Glucose 86 Calcium 8.8 Magnesium Total Bilirubin AST ALT Alkaline Phosphatase Creatine Kinase 60 Cancelled Troponin I < 0.02 Cancelled Total Protein Albumin Urine Color Urine Appearance Urine pH Ur Specific [place] Urine Protein Urine Glucose (UA) Urine Ketones Urine Blood Urine Nitrite Urine Bilirubin Urine Urobilinogen Ur Leukocyte Esterase 11/11/17 11:38 WBC RBC Hgb Hct MCV MCH MCHC RDW Plt Count MPV Neutrophils % Lymphocytes % Monocytes % Eosinophils % Basophils % Nucleated RBC % PT with INR INR Sodium Potassium Chloride Carbon Dioxide Anion Gap BUN Creatinine Creat Clearance w eGFR Random Glucose Calcium Magnesium Total Bilirubin AST ALT Alkaline Phosphatase Creatine Kinase Troponin I Total Protein Albumin Urine Color Yellow Urine Appearance Clear Urine pH 5.0 Ur Specific [place] 1.021 Urine Protein Negative Urine Glucose (UA) Negative Urine Ketones Negative Urine Blood Negative Urine Nitrite Negative Urine Bilirubin Negative Urine Urobilinogen Negative Ur Leukocyte Esterase Negative Active Medications Generic Name Dose Route Start Last Admin Trade Name Joseph PRN Reason Stop Dose Admin Bupropion HCl 150 mg 11/11/17 10:00 11/11/17 09:26 Wellbutrin Xl - PO 150 mg DAILY DARLIN Administration Cefpodoxime Proxetil 200 mg 11/11/17 10:00 11/11/17 09:25 Vantin - PO 200 mg BID DARLIN Administration Donepezil HCl 5 mg 11/11/17 10:00 11/11/17 09:25 Aricept - PO 5 mg DAILY DARLIN Administration Sodium Chloride 1,000 mls @ 42 mls/hr 11/11/17 02:30 11/11/17 08:36 Normal Saline - IV 11/12/17 02:19 42 mls/hr ASDIR DARLIN Administration Metoprolol Succinate 12.5 mg 11/11/17 10:00 11/11/17 09:25 Toprol Xl - PO 12.5 mg DAILY DARLIN Administration Pancrelipase 1 cap 11/11/17 08:00 11/11/17 13:00 Sun Almazan 36,000 Units Capsule PO 1 cap TIDCM DARLIN Administration Pantoprazole Sodium 40 mg 11/11/17 10:00 11/11/17 09:25 Protonix - PO 40 mg DAILY DARLIN Administration Polyethylene Glycol 17 gm 11/11/17 10:00 11/11/17 09:25 Miralax (For Daily Use) - PO 17 gm BID DARLIN Administration ASSESSMENT/PLAN:
[2017-11-11 17:09] VITALS: BP 114/99; PULSE 67; TEMP 97.9
--- NOTE | 2017-11-11 18:17 | PN ---
Teaching Attending Note Name of Resident: Dunia Tapia ATTENDING PHYSICIAN STATEMENT I saw and evaluated the patient. I reviewed the resident's note and discussed the case with the resident. I agree with the resident's findings and plan as documented. SUBJECTIVE: OBJECTIVE: Vital Signs Period Temp Pulse Resp BP Sys/Miller Pulse Ox Last 24 Hr 97.2 F-97.9 F 53-70 17-17 114-171/72-99 95-99 Laboratory Results - last 24 hr 11/10/17 11/10/17 11/10/17 21:10 21:10 21:10 WBC 8.5 D RBC 4.23 Hgb 13.5 Hct 39.7 MCV 93.9 MCH 32.0 MCHC 34.1 RDW 13.7 Plt Count 185 MPV 8.4 Neutrophils % 77.8 D Lymphocytes % 12.8 D Monocytes % 7.8 Eosinophils % 1.2 Basophils % 0.4 Nucleated RBC % 0 PT with INR 11.60 INR 1.03 Sodium 142 Potassium 4.1 Chloride 109 H Carbon Dioxide 25 Anion Gap 8 BUN 22 H Creatinine 1.2 H Creat Clearance w eGFR 43.01 Random Glucose 112 H Calcium 8.6 Magnesium 2.4 Total Bilirubin 0.3 AST 32 ALT 36 Alkaline Phosphatase 85 Creatine Kinase 68 Troponin I < 0.02 Total Protein 6.1 L Albumin 3.2 L Urine Color Urine Appearance Urine pH Ur Specific [place] Urine Protein Urine Glucose (UA) Urine Ketones Urine Blood Urine Nitrite Urine Bilirubin Urine Urobilinogen Ur Leukocyte Esterase 11/11/17 11/11/17 11/11/17 07:10 07:10 07:10 WBC 7.2 RBC 4.27 Hgb 13.6 Hct 39.7 MCV 93.0 MCH 31.7 MCHC 34.1 RDW 13.7 Plt Count 203 MPV 8.3 Neutrophils % Lymphocytes % Monocytes % Eosinophils % Basophils % Nucleated RBC % PT with INR INR Sodium 143 Potassium 3.5 Chloride 110 H Carbon Dioxide 25 Anion Gap 8 BUN 22 H Creatinine 1.0 Creat Clearance w eGFR Random Glucose 86 Calcium 8.8 Magnesium Total Bilirubin AST ALT Alkaline Phosphatase Creatine Kinase 60 Cancelled Troponin I < 0.02 Cancelled Total Protein Albumin Urine Color Urine Appearance Urine pH Ur Specific [place] Urine Protein Urine Glucose (UA) Urine Ketones Urine Blood Urine Nitrite Urine Bilirubin Urine Urobilinogen Ur Leukocyte Esterase 11/11/17 11:38 WBC RBC Hgb Hct MCV MCH MCHC RDW Plt Count MPV Neutrophils % Lymphocytes % Monocytes % Eosinophils % Basophils % Nucleated RBC % PT with INR INR Sodium Potassium Chloride Carbon Dioxide Anion Gap BUN Creatinine Creat Clearance w eGFR Random Glucose Calcium Magnesium Total Bilirubin AST ALT Alkaline Phosphatase Creatine Kinase Troponin I Total Protein Albumin Urine Color Yellow Urine Appearance Clear Urine pH 5.0 Ur Specific [place] 1.021 Urine Protein Negative Urine Glucose (UA) Negative Urine Ketones Negative Urine Blood Negative Urine Nitrite Negative Urine Bilirubin Negative Urine Urobilinogen Negative Ur Leukocyte Esterase Negative Current Medications Generic Name Dose Route Start Last Admin Trade Name Freq PRN Reason Stop Dose Admin Bupropion HCl 150 mg 11/11/17 10:00 11/11/17 09:26 Wellbutrin Xl - PO 150 mg DAILY DARLIN Administration Cefpodoxime Proxetil 200 mg 11/11/17 10:00 11/11/17 09:25 Vantin - PO 200 mg BID DARLIN Administration Donepezil HCl 5 mg 11/11/17 10:00 11/11/17 09:25 Aricept - PO 5 mg DAILY DARLIN Administration Sodium Chloride 1,000 mls @ 42 mls/hr 11/11/17 02:30 11/11/17 08:36 Normal Saline - IV 11/12/17 02:19 42 mls/hr ASDIR DARLIN Administration Metoprolol Succinate 12.5 mg 11/11/17 10:00 11/11/17 09:25 Toprol Xl - PO 12.5 mg DAILY DARLIN Administration Pancrelipase 1 cap 11/11/17 08:00 11/11/17 13:[address] 36,000 Units Capsule PO 1 cap TIDCM DARLIN Administration Pantoprazole Sodium 40 mg 11/11/17 10:00 11/11/17 09:25 Protonix - PO 40 mg DAILY DARLIN Administration Polyethylene Glycol 17 gm 11/11/17 10:00 11/11/17 09:25 Miralax (For Daily Use) - PO 17 gm BID DARLIN Administration ASSESSMENT AND PLAN:
--- NOTE | 2017-11-11 19:53 | DS ---
Physical Exam: SUBJECTIVE: Patient seen and examined at bedside. Earlier in AM, pt states that she does not know how she ended up in the hospital. Later in afternoon, pt aware that she was here recently, and has returned d/t unsteadiness. Pleasantly confused. Walked with PT this afternoon using rolling walker. Will go to the [facility] in [place] for rehab. Denies CUI, fever, chills, SOB, chest pain, or changes in urinary or bowel function. OBJECTIVE: Vital Signs Period Temp Pulse Resp BP Sys/Miller Pulse Ox Last 24 Hr 97.2 F-97.9 F 53-70 17-17 114-171/72-99 95-99 PHYSICAL EXAM GENERAL: The patient is pleasantly confused. +mild dementia, AAOx2, in no acute distress. HEAD: Normal with no signs of trauma. EYES: PERRL, extraocular movements intact, sclera anicteric, conjunctiva clear. ENT: Ears normal, nares patent, oropharynx clear without exudates, moist mucous membranes. NECK: Trachea midline, supple. LUNGS: Breath sounds equal, clear to auscultation bilaterally, no wheezes, no crackles, no accessory muscle use. HEART: Regular rate and rhythm, S1, S2 without murmur, rub or gallop. ABDOMEN: Soft, mild diffuse tenderness in epigastrium, nondistended, normoactive bowel sounds, no guarding, no rebound, no hepatosplenomegaly, no masses. EXTREMITIES: 2+ pt pulses, warm, well-perfused, no edema. NEUROLOGICAL: Cranial nerves II through XII grossly intact. Normal speech PSYCH: Normal mood, normal affect. SKIN: Warm, dry LABS Laboratory Results - last 24 hr 11/10/17 11/10/17 11/10/17 21:10 21:10 21:10 WBC 8.5 D RBC 4.23 Hgb 13.5 Hct 39.7 MCV 93.9 MCH 32.0 MCHC 34.1 RDW 13.7 Plt Count 185 MPV 8.4 Neutrophils % 77.8 D Lymphocytes % 12.8 D Monocytes % 7.8 Eosinophils % 1.2 Basophils % 0.4 Nucleated RBC % 0 PT with INR 11.60 INR 1.03 Sodium 142 Potassium 4.1 Chloride 109 H Carbon Dioxide 25 Anion Gap 8 BUN 22 H Creatinine 1.2 H Creat Clearance w eGFR 43.01 Random Glucose 112 H Calcium 8.6 Magnesium 2.4 Total Bilirubin 0.3 AST 32 ALT 36 Alkaline Phosphatase 85 Creatine Kinase 68 Troponin I < 0.02 Total Protein 6.1 L Albumin 3.2 L 11/11/17 11/11/17 11/11/17 07:10 07:10 07:10 WBC 7.2 RBC 4.27 Hgb 13.6 Hct 39.7 MCV 93.0 MCH 31.7 MCHC 34.1 RDW 13.7 Plt Count 203 MPV 8.3 Sodium 143 Potassium 3.5 Chloride 110 H Carbon Dioxide 25 Anion Gap 8 BUN 22 H Creatinine 1.0 Creat Clearance w eGFR Random Glucose 86 Calcium 8.8 Total Bilirubin Alkaline Phosphatase Creatine Kinase 60 Cancelled Troponin I < 0.02 Cancelled Urine Bilirubin Microbiology -11/10/17: UCx - pending Imaging -11/10/17: Head CT non-con: unremarkable, without acute hemorrhage -11/10/17: CXR: L basilar atelectasis, without CHF, infiltrates or pleural effusions HOSPITAL COURSE: Date of Admission:11/11/17 Date of Discharge: 11/11/17 Admit diagnosis: unwitnessed fall, possible syncopal episode 82 y/o F with PMH of HTN and dementia, recently discharged two days prior for syncopal episode with unrevealing w/u, who presented similarly after unwitnessed fall at home and was found on the floor by EMS. Patient unable to recall events prior to fall. On admission, denied any CUI, dizziness, blurry vision, chest pain or chest discomfort. During recent admission 11/06-, she was treated for E. coli UTI and is on day 2 of Vantin 200mg BID treatment. Patient denied any urinary sx. Pt admitted for unwitnessed fall, repeated possible syncopal episode. While pt was admitted, she was given IVF, had a head CT non con (unremarkable), CXR that revealed L basilar atelectasis without infiltrates or other infectious processes. She was seen by cardiology and no further intervention was required, as on prior admission, pt without significant events on tele. Upon dc, pt walked with PT and as she walked 25 ft with assistance, she will continue PT at rehab. Pt for transport to the [facility]. Discussed and answered questions from son. Minutes to complete discharge: 45 Discharge Summary Reason For Visit: SYNCOPE AND COLLAPSE Current Active Problems Syncope and collapse (Acute) Condition: Fair - Instructions Diet, Activity, Other Instructions: You were in the hospital because you were unsteady at home. While you were in the hospital, you had a CT head scan that was negative for any hemorrhage. While you were here, you were also seen by a budget analyst and no new interventions were needed. You walked with a physical therapist, and since you were only able to walk 25 feet, we believe you would benefit from physical therapy at a rehab facility called [facility]. You may continue your home medications. Please also continue the antibiotic, vantin 200mg twice a day (for a total of seven days) from your last hospital visit for your urinary tract infection. Please also hydrate yourself and rest. If you develop chest pain or shortness of breath, or fall again, please go to the hospital. We hope you feel better soon. You may follow up with your primary care doctor in one week. Referrals: Cathy Saurez MD [Primary Care Provider] - Disposition: RETIREMENT FACILITY - Home Medications Comprehensive Discharge Medication List: Ambulatory Orders Bupropion HCl [Bupropion HCl Sr] 150 mg PO DAILY 04/13/16 Donepezil HCl 5 mg PO DAILY 04/13/16 Lipase/Protease/Amylase [Creon Dr 36,000 Units Capsule] 1 each PO TID 04/13/16 Omeprazole 40 mg PO DAILY 04/13/16 Polyethylene Glycol 3350 [Miralax 119 gm Btl -] 17 gm PO BID 04/13/16 Cefpodoxime Proxetil [Vantin -] 200 mg PO Q12H #14 tablet 11/09/17 Metoprolol Succinate [Toprol XL -] 12.5 mg PO DAILY #30 tab.sr.24h 11/09/17 Miscellaneous Drug Not In Syst [Outpatient Lab Test] 1 each ASDIR #1 misc Miscellaneous Drug Not In Syst [Outpatient Lab Test] 1 each ASDIR #1 misc This patient is new to me today: No Emergency Visit: No Critical Care patient: No - Discharge Referral Referred to [facility] Med P.C.: No
== END 2017-11-11 20:31 | disposition home or self-care (01) ==
LOC: JER 19:41 → JERBED 11-11 00:56 → UNDODISOB 11-11 18:54
PROVIDERS: ADMIT Internal Medicine; ATTEND Internal Medicine
PROC: 3E0337Z Introduction of Electrolytic and Water Balance Substance into Peripheral Vein, Percutaneous Approach (ICD-10-PCS; principal; 2017-11-11)
DX: R55 Syncope and collapse (principal); I10 Essential (primary) hypertension; I50.9 Heart failure, unspecified; E78.5 Hyperlipidemia, unspecified; F03.90 Unspecified dementia, unspecified severity, without behavioral disturbance, psychotic disturbance, mood disturbance, and anxiety; N17.9 Acute kidney failure, unspecified; N39.0 Urinary tract infection, site not specified; R82.71 Bacteriuria; W18.39XA Other fall on same level, initial encounter; Z91.81 History of falling; Y93.89 Activity, other specified; Y92.009 Unspecified place in unspecified non-institutional (private) residence as the place of occurrence of the external cause
CPT/HCPCS: 36415; 70450-TC; 71045-TC-FY; 80048; 80053; 81003; 82550; 83735; 84484; 85025; 85027; 85610; 87086; 87186; 93005; 93010; 93306-TC; 97116-GP; 97161-GP; 99285-25; G0378; J7030